=== PATIENT | male | born 1945 ===

== ENCOUNTER 2017-06-15 20:26 | Inpatient (IN) | payer MEDICARE ==
[2017-06-15 20:26] VITALS: BMI 23.6
[2017-06-15 21:42] LABS: BASO % 0.5 % (0.0-2.0); EOS # 0.1 K/uL (0.0-0.7); EOS % 1.7 % (0.0-4.0); LYMPH # 2.5 K/uL (1.0-4.3); LYMPH % 33.6 % (20.0-40.0); MEAN CELL VOLUME 91.5 fl (80.0-94.0); MEAN CORPUSCULAR HEMOGLOBIN 30.8 pg (27.0-31.0); MEAN CORPUSCULAR HGB CONC 33.6 g/dL (33.0-37.0); MEAN PLATELET VOLUME 8.1 fl (7.2-11.7); MONO # 0.7 K/uL (0.0-0.8); MONO % 8.8 % (0.0-10.0); NEUT # 4.2 K/uL (1.8-7.0); NEUT % 55.4 % (50.0-75.0); NRBC % 0.1 % (0.0-0.0); RED CELL DISTRIBUTION WIDTH 14.7 % (11.5-14.5); WHITE BLOOD COUNT 7.6 K/uL (4.8-10.8)
[2017-06-15 21:58] LABS: BLOOD UREA NITROGEN 16 mg/dl (9-20); CALCIUM 9.5 mg/dL (8.4-10.2); CARBON DIOXIDE 21 mmol/L (22-30); CHLORIDE 110 mmol/L (98-107); GFR AFRICAN-AMERICAN > 60; GLUCOSE,RANDOM 106 mg/dL (75-110); POTASSIUM 3.7 MMOL/L (3.6-5.0); SODIUM 146 mmol/l (132-148)
--- NOTE | 2017-06-15 22:25 | ED PDOC ---
HPI: Psych/Substance Abuse Time Seen by Provider: 06/15/17 20:54 Chief Complaint (Nursing): Psychiatric Evaluation Chief Complaint (Provider): Depression History Per: Patient History/Exam Limitations: no limitations Additional Complaint(s): Patient is a 71 y/o male with a past medical history of depression presenting to the emergency department for ongoing and worsening depression and suicidal thoughts. Reports that is in skilled nursing and states that he does not want to live. Also notes chronic back pain which he treats with Tylenol for relief, and chronic right shoulder pain. Denies recent injuries or trauma, any suicidal plans, or other medical and surgical history. PCP: none provided. Past Medical History Reviewed: Historical Data, Nursing Documentation, Vital Signs Vital Signs: Last Vital Signs Temp 97.7 F 06/15/17 20:29 Pulse 89 06/15/17 20:29 Resp 19 06/15/17 20:29 BP 131/66 06/15/17 20:29 Pulse Ox 98 06/15/17 20:29 - Medical History PMH: Depression, HTN, Chronic Pain (back) Denies: Diabetes, Hepatitis, HIV, Seizures, Sexually Transmitted Disease - Surgical History Surgical History: Comment Only: Back Surgery (y; 15 years ago) - Family History Family History: States: Unknown Family Hx - Social History Current smoker - smoking cessation education provided: Yes (sometimes) Ex-Smoker (has not smoked in the last 12 months): No Alcohol: None Drugs: Denies - Immunization History Hx Tetanus Toxoid Vaccination: No Hx Influenza Vaccination: No Hx Pneumococcal Vaccination: No - Home Medications Home Medications: Ambulatory Orders Medication Instructions Recorded No Known Home Med 06/16/17 - Allergies Allergies/Adverse Reactions: Allergies Allergy/AdvReac Type Severity Reaction Status Date / Time No Known Allergies Allergy Verified 06/15/17 20:34 Review of Systems ROS Statement: Except As Marked, All Systems Reviewed And Found Negative Musculoskeletal: Positive for: Shoulder Pain (right, chronic), Back Pain ( chronic) Psych: Positive for: Depression, Suicidal ideation (suicidal with no plan) Physical Exam - Reviewed Nursing Documentation Reviewed: Yes Vital Signs Reviewed: Yes - Physical Exam Appears: Positive for: Non-toxic (and disheveled), No Acute Distress Head Exam: Positive for: ATRAUMATIC, NORMAL INSPECTION, NORMOCEPHALIC Skin: Positive for: Normal Color, Warm, DRY Eye Exam: Positive for: Normal appearance, EOMI ENT: Positive for: Normal ENT Inspection Neck: Positive for: Normal, Painless ROM, Supple Cardiovascular/Chest: Positive for: Regular Rate, Rhythm. Negative for: Murmur Respiratory: Positive for: Normal Breath Sounds. Negative for: Accessory Muscle Use, Respiratory Distress Gastrointestinal/Abdominal: Positive for: Normal Exam, Soft. Negative for: Tenderness Back: Positive for: Other (lower paraspinal tenderness) Extremity: Positive for: Other (right shoulder painful ROM). Negative for: Pedal Edema, Deformity, Swelling Neurologic/Psych: Positive for: Alert, Oriented (x3) - Laboratory Results Result Diagrams: 06/15/17 21:35 06/15/17 21:35 - ECG O2 Sat by Pulse Oximetry: 98 (RA) Pulse Ox Interpretation: Normal Medical Decision Making Medical Decision Making: Time: 21:34 Initial Impression: 1. Depression 2. Chronic back pain and arthritis Initial plan: EKG Urine drug screening Crisis evaluation Motrin 400 mg PO satellite project site monitor continued Right shoulder X-Ray Reevaluation 23:59: Transfer of care to Dr. Browning for pending crisis evaluation. Scribe Attestation: Documented by Chelsea Cabrera and Flor Chau, acting as a scribe for Cindy Mauricio MD. Provider Scribe Attestation: All medical record entries made by the Scribe were at my direction and personally dictated by me. I have reviewed the chart and agree that the record accurately reflects my personal performance of the history, physical exam, medical decision making, and the department course for this patient. I have also personally directed, reviewed, and agree with the discharge instructions and disposition. ED OBSERVATION Date of observation admission: 06/15/17 Time of observation admission: 23:00 - Observation admission statement Patient is being placed in observation because:: Alcohol intoxication and depression - Goals of Observation Goals of observation are:: Clinical sobriety and crisis evaluation Disposition - Clinical Impression Clinical Impression: Depression - Patient ED Disposition Is Patient to be Admitted: Transfer of Care Counseled Patient/Family Regarding: Studies Performed, Diagnosis - Disposition Disposition: Transfer of Care Disposition Time: 23:59 Condition: FAIR
--- NOTE | 2017-06-16 00:15 | ED PDOC ---
- Laboratory Results Result Diagrams: 06/15/17 21:35 06/15/17 21:35 - ECG O2 Sat by Pulse Oximetry: 98 (RA) Medical Decision Making Medical Decision Makin:59: Transfer of care to myself for pending crisis evaluation. Records and results reviewed. Patient is medically stable for psychiatric admission. XR shoulder reviewed and is unremarkable. Labs reviewed and showed no clinically significant findings. 00:43: Crisis has evaluated the patient and recommended admission for unspecified depression and alcohol abuse. Scribe Attestation Documented by Flor Chau acting as a scribe for Gabriel Browning MD. Provider Attestation: All medical record entries made by the Scribe were at my direction and personally dictated by me. I have reviewed the chart and agree that the record accurately reflects my personal performance of the history, physical exam, medical decision making, and the department course for this patient. I have also personally directed, reviewed, and agree with the discharge instructions and disposition. Disposition - Clinical Impression Clinical Impression: Depression - POA Present On Arrival: None - Disposition Disposition: Admitted as In-Patient Disposition Time: 23:00 Condition: FAIR
[2017-06-16] MEDS ORDERED: Alum-Mag Hydrox-Simethicone Susp (30 mL) PO PRN (03:09)
[2017-06-16] MEDS ORDERED: Bismuth Subsalicylate 262 mg/15 ml Sus (240 ml) PO PRN (03:09)
[2017-06-16] MEDS ORDERED: Magnesium Hydroxide Susp 30 ml UD PO PRN (03:09)
--- NOTE | 2017-06-16 03:45 | PCM.BM ---
<Jennifer Harmon - Last Filed: 06/16/17 03:42> Treatment Plan Problems - Problems identified on initial assessmt HOPELESSNESS/HELPLESSNESS Date Initiated: 06/16/17 Time Initiated: 03:43 Assessment reference: NA Status: Active SELF CARE DEFICIT Date Initiated: 06/16/17 Time Initiated: 03:44 Assessment reference: NA Status: Active Treatment assets and liabiliti Patient Assests: cooperative, ADL independent, physically healthy, negotiates basic needs, cognitively intact Patient Liabilities: live alone, financial problems, poor support system, substance abuse - Milieu Protocol Maintain good personal hygiene: daily Encourage regular showers, daily Assist patient to perform ADL's, every shift Remind patient to perform daily oral care Conduct patient checks and document Observation sheet: Q15 minutes Maintain personal safety: every shift Educate patient to report safety concerns to staff, every shift Monitor environment for contraband/sharps Medication safety: Monitor for expected outcome, potential side effects: every shift, Assess barriers to learning: every shift, Assess readiness for medication education: every shift <Ramya Tran - Last Filed: 06/18/17 10:37> Family Contact Family involvement: Family/SO is involved Family contact comment: Pt's [facility], unknown reason Discharge/Continuing Care - Education Needs Education Needs: Patient Medication, Patient Diagnosis/Disease Process, Patient Coping Skills, Patient Anger Management skills, Patient Community resources, Patient Activities of Daily Living, Patient Personal Hygiene/Grooming, Patient Aftercare Safety Plan - Discharge Discharge Criteria: Free of Suicidal thoughts, Free of Homicidal thoughts, Free of agitation, Ability to care for self, Reduction of target symptoms Discharge to:: Home - Additional Comments 06/18/17 10:45 Pt seen and discussed in team meeting. Reason for admission discussed. Pt reported he was brought to the ED by the police for unknown reasons. Pt denied feelings of depression and anxiety. Pt denied SI and HI. Pt denied AVH. Pt denied any paranoia. Pt requesting to be discharged. Pt reported no hx of prior psychiatric services. [employer] inquired about BAL at time of ED arrival, pt stated "that is impossible, i drink 1 beer only." Pt denied problems with memory. Pt reported he lives alone and visits his at [facility] daily. Pt will be discharged back home. Pt refused after care and follow up treatment. - Treatment Team Participation Discussed with Family/SO: No Was Patient/Family/SO present at Treatment Team Meeting: Yes <Eli Morse - Last Filed: 06/18/17 11:01> - Diagnosis (1) Substance induced mood disorder Status: Acute Interventions: Individual and group therapy, medication management, psychoeducation, motivational therapy 06/18/17 11:00
[2017-06-16 08:46] LABS: IRON 75 ug/dL (49-181)
--- NOTE | 2017-06-16 08:52 | RAD ---
HISTORY: Chest pain COMPARISON: No prior. FINDINGS: LUNGS: The lungs are well inflated and clear. PLEURA: No significant pleural effusion identified, no pneumothorax apparent. CARDIOVASCULAR: Normal. OSSEOUS STRUCTURES: No significant abnormalities. VISUALIZED UPPER ABDOMEN: Normal. OTHER FINDINGS: None. IMPRESSION: No active pulmonary disease.
[2017-06-16] MEDS ORDERED: Pneumococcal 23-Valent Vaccine IM ONE (09:00)
[2017-06-16 09:07] LABS: T4 6.37 ug/dl (5.5-11.0)
--- NOTE | 2017-06-16 09:10 | RAD ---
PROCEDURE: Radiographs of the Right Shoulder HISTORY: right shoulder COMPARISON: No prior. FINDINGS: BONES: Bone alignment is normal. There is no acute fracture. There is diffuse bone demineralization. JOINTS: There is mild degenerative osteoarthrosis in the right glenohumeral joint with reduced joint space and subarticular cystic changes in the greater tuberosity. There is mild degenerative osteoarthrosis in the acromioclavicular joint. There is an ossific density superior to the acromion process which may represent an osteophyte or old fracture. SOFT TISSUES: Normal. OTHER FINDINGS: None. IMPRESSION: No acute fracture or dislocation.
[2017-06-16 09:21] LABS: THYROID STIMULATING HORMONE 0.81 mIU/ML (0.46-4.68)
--- NOTE | 2017-06-16 12:28 | CP.PCM.CON ---
History of Present Illness - History of Present Illness History of Present Illness: Reason for Consult: per hospital protocol CC: HPI: 71 year old undomiciled male with no past medical history admitted for depression to psych floor. No other complaints at this time. HD stable, NAD. ROS: per HPI, 12 systems reviewed and negative PMH: denies PSH: denies FH: denies SH: denies tobacco, ETOH, IVDU Meds: as below Allergies: NKDA Vitals: reviewed and currently stable Exam: GEN: WDWN, alert, cooperative HEENT: NCAT, PERRL, EOMI NECK: supple, no JVD, no lymphadenopathy CARDIAC: +S1S2 RRR LUNG: CTAB No WRR ABD: SOFT NT ND BSX4 NO MASSES NO HSM EXT: +pedal pulses, equal strength NEURO: AAOx3 SKIN warm, dry PSYCH normal mood, normal affect Labs: 06/15/17 21:35 06/15/17 21:35 Assessment and Plan: Depression Management per Psychiatry Team Past Patient History - Infectious Disease Hx of Infectious Diseases: None - Past Social History Alcohol: None Drugs: Denies - CARDIAC Hx Cardiac Disorders: No - PULMONARY Hx Tuberculosis: No - NEUROLOGICAL Hx Seizures: No - HEMATOLOGICAL/ONCOLOGICAL Hx Human Immunodeficiency Virus (HIV): No - MUSCULOSKELETAL/RHEUMATOLOGICAL Hx Falls: Yes - GENITOURINARY/GYNECOLOGICAL Hx Sexually Transmitted Disorders: No - PSYCHIATRIC Hx Psychophysiologic Disorder: Yes - SURGICAL HISTORY Hx Surgeries: No Other/Comment: back surgery - ANESTHESIA Hx Anesthesia: Yes Hx Anesthesia Reactions: No Hx Malignant Hyperthermia: No Has any member of the family had a problem w/ anesthesia?: No Meds Allergies/Adverse Reactions: Allergies Allergy/AdvReac Type Severity Reaction Status Date / Time No Known Allergies Allergy Verified 06/15/17 20:34 - Medications Medications: Current Medications Acetaminophen (Tylenol 325mg Tab) 650 mg PO Q4 PRN PRN Reason: Pain, moderate (4-7) Al Hydrox/Mg Hydrox/Simethicone (Maalox Plus 30 Ml) 30 ml PO Q4 PRN PRN Reason: Dyspepsia Bismuth Subsalicylate (Pepto-Bismol) 524 mg PO Q4 PRN PRN Reason: Diarrhea Lorazepam (Ativan) 0.5 mg PO HS PRN PRN Reason: Insomnia Stop: 06/30/17 03:10 Lorazepam (Ativan) 0.5 mg PO Q6 PRN PRN Reason: Anixety/Agitation Stop: 06/30/17 03:10 Magnesium Hydroxide (Milk Of Magnesia) 30 ml PO HS PRN PRN Reason: Constipation Results - Vital Signs Recent Vital Signs: Last Vital Signs Temp 97.9 F 06/16/17 06:00 Pulse 83 06/16/17 06:00 Resp 18 06/16/17 06:00 BP 115/69 06/16/17 06:00 Pulse Ox 100 06/16/17 01:47 - Labs Result Diagrams: 06/15/17 21:35 06/15/17 21:35 Labs: Laboratory Results - last 24 hr 06/16/17 06/16/17 08:03 08:03 Iron 75 TIBC 318 % Saturation 24 Ferritin 69.1 Vitamin B12 225 L Thyroxine (T4) 6.37 TSH 3rd Generation 0.81
--- NOTE | 2017-06-16 13:22 | PCM.PSYCH ---
Initial Psychiatric Evaluation - Initial Psychiatric Evaluation Chief Complaint (in patient's own words): pt was admitted to [facility] via emergency room after presentation for decreased mood , decreased appetite , feeling down thinking of who is reportedly a resident of [facility] in [place] for "trouble with memory and Parkinson's Disease". Pt. reports was feeling overwhelmed was thinking about taking live-feeling as though he has very little to live for. Pt. is homeless, defers living in particular penitentiary. Laments about reportedly having lost trailer home in [place] approx. 6 years ago when reportedly the trailer park in which he was living was closed. Pt. reports that has no support. Reports that he originally from [place], pt. reportedly has brother in [place] and is estranged. Pt. has has no children. Parents are "old age"-"unknown reasons". Denies known family history of mental illness. Pt. 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 Pt. denies previous psychiatric treatment. Denies self perception as being a person with etoh problems (Negative CAGE was obtained). Smokes one pack of cigarettes day for over 50 years. Patient's Reaction to Hospitalization: pt is verbally agreeable to admitted on a voluntary basis History of Present Illness and Precipitating Events: see above Current Medications: Active Medications Generic Name Dose Route Start Last Admin Trade Name Freq PRN Reason Stop Dose Admin Acetaminophen 650 mg 06/16/17 03:09 Tylenol 325mg Tab PO Q4 PRN Pain, moderate (4-7) Al Hydrox/Mg Hydrox/Simethicone 30 ml 06/16/17 03:09 Maalox Plus 30 Ml PO Q4 PRN Dyspepsia Bismuth Subsalicylate 524 mg 06/16/17 03:09 Pepto-Bismol PO Q4 PRN Diarrhea Escitalopram Oxalate 5 mg 06/16/17 12:45 Lexapro PO DAILY MARYCHUY Lorazepam 0.5 mg 06/16/17 03:09 Ativan PO 06/30/17 03:10 HS PRN Insomnia Lorazepam 0.5 mg 06/16/17 03:09 Ativan PO 06/30/17 03:10 Q6 PRN Anixety/Agitation Magnesium Hydroxide 30 ml 06/16/17 03:09 Milk Of Magnesia PO HS PRN Constipation Multivitamins/Minerals 1 tab 06/16/17 12:45 Therapeutic-M Tab PO DAILY MARYCHUY Past Psychiatric History - Past Psychiatric History Prior Psychiatric Treatment: denies History of ETOH/Drug Use: report 2-3 16 oz beers 2-3 times week Pertinent Medical Hx (Current Medical&Sleep Prob, Allergies): Allergies Allergy/AdvReac Type Severity Reaction Status Date / Time No Known Allergies Allergy Verified 06/15/17 20:34 No Known Home Med 06/16/17 Review of Systems - Musculoskeletal Musculoskeletal: As Par HPI - Psychiatric Psychiatric: Anhedonia, Depression Mental Status Examination - Personal Presentation Personal Presentation: Looks stated age - Affect Affect: Constricted - Motor Activity Motor Activity: Psychomotor Retardation Additional comments: denies complaints of withdrawal - Reliability in Providing Information Reliability in Providing Information: Fair - Speech Additional comments: prompting required for detail - Mood Mood: Depressed - Formal Thought Process Formal Thought Process: No Impairment - Obsessions/Compulsions Obsessions: No Compulsions: No - Cognitive Functions Orientation: Person, Place, Situation, Time Sensorium: Alert Attention/Concentration: Attentive Judgement: Imparied, as evidence by: Other, Intact, as evidence by: Other Memory: Recent intact, as evidence by: Ability to recall events of the day - Risk Risk: Suicidal Additional comments: contracts for safety, no laney plan is near nursing station - Strength & Assets Inventory Strength & Assets Inventory: Cooperative - Limitations Limitations: Living alone DSM 5 DX - DSM 5 DSM 5 Diagnosis: 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
[2017-06-16] MEDS: Multivitamin With Minerals Tab PO SCH (16:29)
[2017-06-16 17:28] LABS: FOLATE > 20.0 ng/mL
[2017-06-17 06:32] VITALS: O2SAT 98
[2017-06-17 07:18] LABS: RBC URINE 5 /hpf (0-3); RENAL EPITHELIAL < 1 /hpf (0-3); URINE BILIRUBIN NEGATIVE (NEGATIVE); URINE BLOOD NEGATIVE (NEGATIVE); URINE COLOR YELLOW (YELLOW); URINE GLUCOSE (UA) NEG (Normal); URINE KETONE TRACE mg/dL (NEGATIVE); URINE LEUKOCYTE ESTERASE NEG Leu/uL (Negative); URINE PROTEIN NEGATIVE (NEGATIVE); WBC URINE 1 /hpf (0-5)
[2017-06-17 07:26] LABS: CHOLESTEROL 159 mg/dL (0-199)
[2017-06-17] MEDS: Multivitamin With Minerals Tab PO SCH (09:00)
[2017-06-17 15:36] VITALS: RESP 19
--- NOTE | 2017-06-17 18:32 | PCM.PYCHPN ---
Psychiatric Progress Note - Psychiatric Progress Note Patient seen today, length of contact: chart reviewed case discussed with team Patient Chief Complaint: pt reports that he is feeling better, believes he is get back to [place]- speaks of who is reportedly in [facility] pt was admitted to [facility] via emergency room after presentation for decreased mood , decreased appetite , feeling down thinking of who is reportedly a resident of [facility] in [place] for "trouble with memory and Parkinson's Disease". Pt. reports was feeling overwhelmed was thinking about taking live-feeling as though he has very little to live for. Pt. is homeless, defers living in particular senior care. Laments about reportedly having lost trailer home in [place] approx. 6 years ago when reportedly the trailer park in which he was living was closed. Pt. reports that has no support. Reports that he originally from [place], pt. reportedly has brother in [place] and is estranged. Pt. has has no children. Parents are "old age"-"unknown reasons". Denies known family history of mental illness. Pt. 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 Pt. denies previous psychiatric treatment. Denies self perception as being a person with etoh problems (Negative CAGE was obtained). Smokes one pack of cigarettes day for over 50 years. Problems Identified/Issues Discussed: alteration in mood alteration in coping substance use etoh alteration in domicile -homeless Medical Problems: per chart Diagnostic Results: per psychiatry per medicine per nursing per social work DSM 5 Symptoms Update: alteration in mood alteration in coping Medical Record Reviewed: Yes Consults ordered or reviewed: pt seen by hospitalist Mental Status Examination - Cognitive Function Orientation: Person, Place, Situation, Time Attention: WNL Concentration: WNL Association: WNL Fund of Knowledge: WN Decription of patient's judgement and insights: somewhat impaired - Mood Mood: Depressed Additional comments: reportedly less depressed - Affect Affect: Constricted - Speech Speech: Soft - Formal Thought Process Formal Thought Process: No Impairment - Homicidal Ideation Homicidal Ideation: No Goal/Treatment Plan - Goal/Treatment Plan Progress Toward Problem(s) and Goals/Treatment Plan: inpt milieu vital signs and clinical observation per protocol and per status unit based prns per protocol hospitalist consult multivitamin 1 tab po day lexapro 5mg po day discharge planning in process Estimated Date of D/C: 06/19/17 - Smoking Cessation Smoking Cessation Initiated: No Reason for not providing: deferred
[2017-06-18 05:36] VITALS: BP 117/54; PULSE 62; TEMP 97.1
[2017-06-18] MEDS: Multivitamin With Minerals Tab PO SCH (08:37)
--- NOTE | 2017-06-18 10:49 | PCM.PYCHDC ---
Mental Status Examination - Mental Status Examination Orientation: Person, Place, Situation, Time Memory: Intact Mood: Neutral Affect: Broad Speech: Appropriate Attention: WNL Concentration: WNL Association: WNL Fund of Knowledge: WNL Formal Thought Process: No Impairment Description of patient's judgement and insight: Poor insight into alcohol abuse, fair judgment at this time Psychotic Thoughts and Behaviors: No AH/VH/paranoia/delusions Suicidal Ideation: No Current Homicidal Ideation?: No Discharge Summary - Discharge Note Reason for Hospitalization: As per initial admission note: pt was admitted to [facility] via emergency room after presentation for decreased mood, decreased appetite , feeling down thinking of who is reportedly a resident of [facility] in [place] for "trouble with memory and Parkinson's Disease". Pt. reports was feeling overwhelmed was thinking about taking live-feeling as though he has very little to live for. Pt. is homeless, defers living in particular penitentiary. Laments about reportedly having lost trail home in [place] approx. 6 years ago when reportedly the trail park in which he was living was closed. Pt. reports that has no support. Reports that he originally from [place], pt. reportedly has brother in [place] and is estranged. Pt. has has no children. Parents are "old age"-"unknown reasons". Denies known family history of mental illness. Pt. 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 Pt. denies previous psychiatric treatment. Denies self perception as being a person with etoh problems (Negative CAGE was obtained). Smokes one pack of cigarettes day for over 50 years. Laboratory Data: Abnormal Lab Results 06/17/17 05:30 Hemoglobin A1c 5.8 Consultations:: List each consultation separately and include: 1. Reason for request. 2. Findings. 3. Follow-up Consultations: Medicine consult Summary of Hospital Course include:: 1. Description of specific treatment plan utilized for patients during their course of treatmen. 2. Summarize the time- course for resolution of acute symptoms and/or regressed behaviors. 3. Describe issues identified and worked on during hospitalization. 4. Describe medication utilized. 5. Describe medical problems identified and treated. 6. Reassessment of suicide risk Summary of Hospital Course: Patient admitted to the psychiatry unit. Initial ETOH level in the ER >200. Patient was started on Lexapro, but now refuses to take the medications, stating that he is not depressed and does not feel he needs psychotropic medications. Individual and group therapy provided. Patient denies all psychiatric symptoms at this time. Denies AH/VH/SI/HI. He does not want follow -up psychiatric treatment. He is requesting to be discharged and is refusing all psychiatric treatment and follow-up. - Final Diagnosis (DSM 5) Condition upon Discharge: STABLE DSM 5: Substance induced mood disorder; Alcohol Use Disorder Disposition: HOME/ ROUTINE Follow-up Treatment Plan: -Discontinue Lexapro as the patient denies depression and is refusing psychiatric treatments and follow-up -Discharge as the patient denies all psychiatric symptoms at this time -Psychoeducation provided on the dangers of alcohol abuse -Patient told to return to the ER or call 911 if he has thoughts of harming himself or others - Smoking Cessation Smoking Cessation Medication prescribed: Yes Reason for not providing: Received nicotine patch, now refusing prescription for the patch - Antipsychotic Medications Pt discharged on 2 or more routine antipsychotic medications: No
--- NOTE | 2017-06-18 11:12 | CARD ---
APPROVED REPORT EKG Measurement Heart [id number] <Conclusion> Normal sinus rhythm Possible Left atrial enlargement Left anterior fascicular block Abnormal ECG
== END 2017-06-18 13:00 | disposition home or self-care (01) | DRG 897 ==
LOC: H.ER 20:26 → H.EROBSV 23:10 → H.ERHOLD 06-16 01:08 → OBSVTOIN 06-16 03:00 → H.STEP 06-16 03:04
PROVIDERS: ADMIT Nurse Practitioner Psychiatric/Mental Health; ATTEND Nurse Practitioner Psychiatric/Mental Health
PROC: GZ51ZZZ Individual Psychotherapy, Behavioral (ICD-10-PCS; principal; 2017-06-16)
DX: F19.94 Other psychoactive substance use, unspecified with psychoactive substance-induced mood disorder (principal); F10.10 Alcohol abuse, uncomplicated; R45.851 Suicidal ideations; F32.1 Major depressive disorder, single episode, moderate; I10 Essential (primary) hypertension; F17.210 Nicotine dependence, cigarettes, uncomplicated; G89.29 Other chronic pain; M19.90 Unspecified osteoarthritis, unspecified site; Z59.0 Homelessness; M25.511 Pain in right shoulder; M54.9 Dorsalgia, unspecified

== ENCOUNTER 2018-04-19 14:29 | Emergency (ER) | payer MEDICARE ==
[2018-04-19 14:29] VITALS: BMI 21.7
[2018-04-19 14:34] VITALS: BP 114/62; PULSE 106; RESP 18; TEMP 98.2; O2SAT 98
--- NOTE | 2018-04-19 15:06 | ED PDOC ---
HPI: Psych/Substance Abuse Time Seen by Provider: 04/19/18 14:37 Chief Complaint (Nursing): Psychiatric Evaluation Chief Complaint (Provider): Suicidal History Per: Patient History/Exam Limitations: no limitations Onset/Duration Of Symptoms: Days (today) Additional Complaint(s): Pt. states he wants to because he has chronic knee pain. Seen outside with a towel around his neck and a rope next to him. Was seen at another hospital earlier today for same and dc with tramadol and another med. Pt. denies any chest pain, dyspnea, back pain, fever, cough, abd pain, numbness, tingles, weakness, incontinence, constipation. Past Medical History Reviewed: Nursing Documentation, Vital Signs Vital Signs: Last Vital Signs Temp 98.2 F 04/19/18 14:31 Pulse 106 H 04/19/18 14:31 Resp 18 04/19/18 14:31 BP 114/62 04/19/18 14:31 Pulse Ox 98 04/19/18 14:31 - Medical History PMH: Back Problems, Depression, Fractures, Chronic Pain (back) Denies: Diabetes, Hepatitis, HIV, HTN, Seizures, Sexually Transmitted Disease - Surgical History Surgical History: Back Surgery (x3) - Family History Family History: States: Unknown Family Hx - Immunization History Hx Tetanus Toxoid Vaccination: No Hx Influenza Vaccination: No Hx Pneumococcal Vaccination: No - Home Medications Home Medications: Ambulatory Orders Medication Instructions Recorded RX: traMADol [Ultram] 50 mg PO TID PRN #12 tab 04/18/18 - Allergies Allergies/Adverse Reactions: Allergies Allergy/AdvReac Type Severity Reaction Status Date / Time No Known Allergies Allergy Verified 04/18/18 08:51 Review of Systems ROS Statement: Except As Marked, All Systems Reviewed And Found Negative Musculoskeletal: Positive for: Leg Pain Psych: Positive for: Suicidal ideation Physical Exam - Reviewed Nursing Documentation Reviewed: Yes Vital Signs Reviewed: Yes - Physical Exam Appears: Positive for: Non-toxic, No Acute Distress Head Exam: Positive for: ATRAUMATIC, NORMAL INSPECTION, NORMOCEPHALIC Skin: Positive for: Normal Color, Warm, DRY Eye Exam: Positive for: EOMI, Normal appearance, PERRL ENT: Positive for: Normal ENT Inspection Neck: Positive for: Normal, Painless ROM Cardiovascular/Chest: Positive for: Regular Rate, Rhythm Respiratory: Positive for: CNT, Normal Breath Sounds Gastrointestinal/Abdominal: Positive for: Normal Exam, Soft. Negative for: Tenderness Back: Positive for: Normal Inspection. Negative for: L CVA Tenderness, R CVA Tenderness Extremity: Positive for: Normal ROM. Negative for: Tenderness, Pedal Edema Neurologic/Psych: Positive for: Alert, Oriented - Laboratory Results Result Diagrams: 04/19/18 16:02 04/19/18 16:02 Interpretation Of Abn Labs: elevated alcohol - ECG O2 Sat by Pulse Oximetry: 98 Pulse Ox Interpretation: Normal - Progress ED Course And Treament: 1748: Crisis saw pt. and can be dc. Does not meet criteria for admit. He is aaox3. Resting. No pain. Tolerated PO. Disposition - Clinical Impression Clinical Impression: Alcohol intoxication - Patient ED Disposition Is Patient to be Admitted: No Counseled Patient/Family Regarding: Studies Performed, Diagnosis, Need For Followup - Disposition Referrals: [facility] [Outside] - 04/22/18 Disposition: Routine/Home Disposition Time: 17:50 Condition: STABLE Additional Instructions: Return if not better in 3 days. Instructions: Chronic Knee Pain (DC), Alcohol Abuse and Alcoholism (DC)
[2018-04-19 16:08] LABS: BASO % 0.7 % (0.0-2.0); EOS # 0.3 K/uL (0.0-0.7); EOS % 4.3 % (0.0-4.0); LYMPH # 2.2 K/uL (1.0-4.3); LYMPH % 30.2 % (20.0-40.0); MEAN CORPUSCULAR HEMOGLOBIN 31.3 pg (27.0-31.0); MEAN PLATELET VOLUME 7.7 fl (7.2-11.7); MONO # 0.7 K/uL (0.0-0.8); MONO % 8.9 % (0.0-10.0); NEUT # 4.1 K/uL (1.8-7.0); NEUT % 55.9 % (50.0-75.0); NRBC % 0.1 % (0.0-0.0); RBC 3.88 Mil/uL (4.40-5.90); RED CELL DISTRIBUTION WIDTH 14.3 % (11.5-14.5); WHITE BLOOD COUNT 7.4 K/uL (4.8-10.8)
[2018-04-19 16:38] LABS: ACETAMINOPHEN < 10.0 ug/ml (10.0-30.0); BLOOD UREA NITROGEN 21 mg/dl (9-20); CALCIUM 9.1 mg/dL (8.4-10.2); GFR AFRICAN-AMERICAN > 60; GFR NON-AFRICAN AMERICAN > 60; SALICYLATE < 1.0 mg/dl
[2018-04-19 17:11] LABS: HEMOGLOBIN 12.2 g/dL (12.0-18.0)
--- NOTE | 2018-04-20 12:57 | CARD ---
APPROVED REPORT EKG Measurement Heart [id number] <Conclusion> Normal sinus rhythm Possible Left atrial enlargement Left axis deviation Abnormal ECG
== END 2018-04-19 20:05 | disposition home or self-care (01) ==
LOC: H.ER 14:29
DX: F10.129 Alcohol abuse with intoxication, unspecified (principal); F32.9 Major depressive disorder, single episode, unspecified; G89.29 Other chronic pain
CPT/HCPCS: 80048; 85025; 93005; 99283; 99284; G0480

== ENCOUNTER 2018-04-19 22:20 | Emergency (ER) | payer MEDICARE ==
[2018-04-19 22:20] VITALS: BMI 21.7
[2018-04-19 22:25] VITALS: O2SAT 98
--- NOTE | 2018-04-20 04:18 | ED PDOC ---
Lower Extremity Pain/Injury Time Seen by Provider: 04/20/18 04:17 Chief Complaint (Nursing): Lower Extremity Problem/Injury Chief Complaint (Provider): chronic knee pain History Per: Patient Additional Complaint(s): 72 y/o male presents with chronic knee pain. He was seen for same complaint earlier today. He currently lives in alf. No recent trauma or injury, denies fever or chills. Past Medical History Reviewed: Historical Data, Nursing Documentation, Vital Signs Vital Signs: Last Vital Signs Temp 98.5 F 04/19/18 22:21 Pulse 88 04/19/18 22:21 Resp 18 04/19/18 22:21 BP 106/68 04/19/18 22:21 Pulse Ox 98 04/19/18 22:21 - Medical History PMH: Back Problems, Depression, Fractures, Chronic Pain (back) - Surgical History Surgical History: Back Surgery (x3) - Family History Family History: States: Unknown Family Hx - Living Arrangements Living Arrangements: Other (lives in alf) - Social History Alcohol: Social - Home Medications Home Medications: Ambulatory Orders Medication Instructions Recorded traMADol [Ultram] 50 mg PO TID PRN #12 tab 04/18/18 - Allergies Allergies/Adverse Reactions: Allergies Allergy/AdvReac Type Severity Reaction Status Date / Time No Known Allergies Allergy Verified 04/18/18 08:51 Wells Criteria for PE - Wells Criteria for Pulmonary Embolism Clinical Signs and Symptoms of DVT: No P.E is #1 Diagnosis, or Equally Likely: No Heart Rate >100: No Immobilization at least 3 days;Surgery previous 4 weeks: No Previous, objectively diagnosed PE or DVT: No Hemoptysis: No Malignancy w/treatment within 6 months, or palliative: No Total Score: 0 Review of Systems ROS Statement: Except As Marked, All Systems Reviewed And Found Negative Constitutional: Negative for: Fever, Chills Cardiovascular: Negative for: Chest Pain Respiratory: Negative for: Cough Gastrointestinal: Negative for: Nausea, Vomiting Musculoskeletal: Positive for: Other (chronic knee pain) Physical Exam - Reviewed Nursing Documentation Reviewed: Yes Vital Signs Reviewed: Yes - Physical Exam Appears: Positive for: Well, Non-toxic, No Acute Distress Head Exam: Positive for: ATRAUMATIC, NORMAL INSPECTION, NORMOCEPHALIC Skin: Positive for: Normal Color. Negative for: Rash Eye Exam: Positive for: Normal appearance Cardiovascular/Chest: Positive for: Regular Rate, Rhythm Respiratory: Positive for: Normal Breath Sounds. Negative for: Wheezing, Respiratory Distress Neurologic/Psych: Positive for: Alert, Oriented - ECG O2 Sat by Pulse Oximetry: 98 Pulse Ox Interpretation: Normal Medical Decision Making Medical Decision Makin72 y/o male with chronic knee pain Pain meds offered, patient declined Patient was observed in ED for several hours, his condition remained stable throughout his stay. Patient was seen for same complaint yesterday and earlier today and was given rx tramadol for knee pain. He was referred to clinic for follow up. Disposition - Clinical Impression Clinical Impression: Knee pain - Patient ED Disposition Is Patient to be Admitted: No - Disposition Referrals: [facility] [Outside] Disposition: Routine/Home Disposition Time: 04:43 Condition: STABLE Instructions: Chronic Knee Pain Forms: [facility] (Colombian)
[2018-04-20 06:52] VITALS: BP 122/78; PULSE 86; RESP 16; TEMP 98.3
== END 2018-04-20 06:00 | disposition home or self-care (01) ==
LOC: H.ER 22:20
DX: M25.562 Pain in left knee (principal); G89.29 Other chronic pain; F32.9 Major depressive disorder, single episode, unspecified

== ENCOUNTER 2018-05-10 21:06 | Emergency (ER) | payer MEDICAID, MEDICARE ==
[2018-05-10 21:06] VITALS: BMI 21.7
[2018-05-10 21:12] VITALS: RESP 16
--- NOTE | 2018-05-10 22:01 | ED PDOC ---
HPI: Psych/Substance Abuse Time Seen by Provider: 05/10/18 21:12 Chief Complaint (Nursing): Alcohol Ingestion History Per: Patient, EMS Additional Complaint(s): As per EMS pt. called 911 c/o L knee pain and verbalized to them that he wants to kill himself. Pt. states he's had the L knee pain for several years. Admits to drinking 1 budweiser today. Pt. offers no suicidal plan. Denies HI, hallucinations, trauma, chest pain, SOB, palpitations, calf pain. Past Medical History Reviewed: Historical Data, Nursing Documentation, Vital Signs Vital Signs: Last Vital Signs Temp 98.1 F 05/10/18 21:09 Pulse 89 05/10/18 21:09 Resp 16 05/10/18 21:09 BP 108/58 L 05/10/18 21:09 Pulse Ox 96 05/10/18 21:09 - Medical History PMH: Back Problems, Depression, Fractures, Chronic Pain (back) Denies: Diabetes, Hepatitis, HIV, HTN, Seizures, Sexually Transmitted Disease - Surgical History Surgical History: Back Surgery - Family History Family History: States: Unknown Family Hx - Immunization History Hx Tetanus Toxoid Vaccination: No Hx Influenza Vaccination: No Hx Pneumococcal Vaccination: No - Home Medications Home Medications: Ambulatory Orders Medication Instructions Recorded Cyclobenzaprine [Cyclobenzaprine 10 mg PO TID PRN #20 tab 05/06/18 HCl] Naproxen [Naprosyn] 500 mg PO BID #20 tab 05/06/18 - Allergies Allergies/Adverse Reactions: Allergies Allergy/AdvReac Type Severity Reaction Status Date / Time No Known Allergies Allergy Verified 05/10/18 21:08 Review of Systems ROS Statement: Except As Marked, All Systems Reviewed And Found Negative Physical Exam - Physical Exam Appears: Positive for: Well, Non-toxic, No Acute Distress Head Exam: Positive for: ATRAUMATIC, NORMAL INSPECTION, NORMOCEPHALIC Skin: Positive for: Normal Color, Warm. Negative for: Rash Eye Exam: Positive for: Normal appearance. Negative for: Periorbital swelling, Periorbital tenderness, Scleral icterus ENT: Positive for: Normal ENT Inspection, TM Is/Are (no hemotympanim b/l) Neck: Positive for: Normal, Painless ROM Cardiovascular/Chest: Positive for: Regular Rate, Rhythm, Chest Non Tender Respiratory: Positive for: Normal Breath Sounds. Negative for: Respiratory Distress Pulses-Dorsalis Pedis (L): 2+ Pulses-Dorsalis Pedis (R): 2+ Gastrointestinal/Abdominal: Positive for: Normal Exam, Bowel Sounds, Soft, Other (no ecchymosis). Negative for: Tenderness Back: Positive for: Normal Inspection. Negative for: L CVA Tenderness, R CVA Tenderness Extremity: Positive for: Other (L knee without warmth, erythema, swelling, tenderness, or deformity; FROM actively of L knee). Negative for: Pedal Edema ( b/l), Calf Tenderness (b/l) Neurologic/Psych: Positive for: Alert, Oriented, Gait (unsteady), Other (AOB; slurred speech). Negative for: Aphasia, Facial Droop - Laboratory Results Result Diagrams: 05/10/18 23:28 05/10/18 23:28 - ECG O2 Sat by Pulse Oximetry: 96 - Radiology X-Ray: Interpreted by Me (L knee x-ray) X-Ray Interpretation: Other (hardware in place; no fx) - Progress ED Course And Treament: Labs, L knee x-ray ordered. Pt. placed on 1:1. Disposition - Clinical Impression Clinical Impression: Suicidal ideation, Alcohol intoxication - Patient ED Disposition Is Patient to be Admitted: Transfer of Care (Signed out to Sabas PAUL pending sobriety and possible crisis evaluation) - Disposition Disposition Time: 00:00 Condition: STABLE Forms: [facility] (Tajik)
[2018-05-10 23:33] LABS: BASO % 0.3 % (0.0-2.0); EOS # 0.3 K/uL (0.0-0.7); EOS % 4.4 % (0.0-4.0); HEMOGLOBIN 12.3 g/dL (12.0-18.0); LYMPH # 2.4 K/uL (1.0-4.3); LYMPH % 38.6 % (20.0-40.0); MEAN CELL VOLUME 92.6 fl (80.0-94.0); MEAN CORPUSCULAR HEMOGLOBIN 32.2 pg (27.0-31.0); MEAN CORPUSCULAR HGB CONC 34.8 g/dL (33.0-37.0); MEAN PLATELET VOLUME 7.8 fl (7.2-11.7); MONO # 0.5 K/uL (0.0-0.8); MONO % 8.3 % (0.0-10.0); NEUT % 48.4 % (50.0-75.0); NRBC % 0.1 % (0.0-0.0); RBC 3.8 Mil/uL (4.40-5.90); RED CELL DISTRIBUTION WIDTH 14.9 % (11.5-14.5); WHITE BLOOD COUNT 6.1 K/uL (4.8-10.8)
[2018-05-10 23:51] LABS: ALB/GLOB RATIO 1.4 (1.0-2.1); ALT/SGPT 22 U/L (21-72); AST/SGOT 22 U/L (17-59); BLOOD UREA NITROGEN 14 mg/dl (9-20); CALCIUM 9.1 mg/dL (8.4-10.2); GFR AFRICAN-AMERICAN > 60; GFR NON-AFRICAN AMERICAN > 60
[2018-05-11 00:55] LABS: SQUAMOUS EPITHIAL < 1 /hpf (0-5); URINE BACTERIA RARE (<OCC); URINE BILIRUBIN NEGATIVE (NEGATIVE); URINE BLOOD NEGATIVE (NEGATIVE); URINE CLARITY SLIGHTY-CLOUDY (Clear); URINE COLOR YELLOW (YELLOW); URINE GLUCOSE (UA) NEG (Normal); URINE LEUKOCYTE ESTERASE NEG Leu/uL (Negative); URINE PROTEIN NEGATIVE (NEGATIVE); URINE UROBILINOGEN 0.2-1.0 mg/dL (0.2-1.0)
[2018-05-11 01:10] LABS: BARBITURATES, UR NEGATIVE (NEGATIVE); BENZODIAZEPINES, UR NEGATIVE (NEGATIVE); OPIATES, UR NEGATIVE (NEGATIVE); PHENCYCLIDINE, UR NEGATIVE (NEGATIVE)
--- NOTE | 2018-05-11 04:07 | ED PDOC ---
- Laboratory Results Result Diagrams: 05/10/18 23:28 05/10/18 23:28 - ECG O2 Sat by Pulse Oximetry: 96 Medical Decision Making Medical Decision Making: assumed care of patient at 0001; BAL is 178 at 2000; will await sobriety and request crisis screening regarding suicidal threat and ideation. Disposition Discussed With : Miguel Saucedo Doctor Will See Patient In The: Office Counseled Patient/Family Regarding: Diagnosis, Rx Given - Clinical Impression Clinical Impression: Alcohol intoxication, Alcohol dependence - POA Present On Arrival: None - Disposition Disposition: Routine/Home Disposition Time: 05:35 Condition: STABLE Instructions: Alcohol Abuse and Alcoholism (DC), Suicide Prevention Forms: [facility] (Sammarinese)
[2018-05-11 06:29] VITALS: BP 116/66; PULSE 87; TEMP 98.7; O2SAT 98
--- NOTE | 2018-05-11 15:15 | RAD ---
Date of service: 05/10/2018 PROCEDURE: Left Knee Radiographs. HISTORY: Pain. COMPARISON: None. FINDINGS: BONES: Status post ORIF proximal tibial fracture. Fixation plate along the lateral proximal tibial border with multiple fixation screws traversing the tibia. No acute fracture identified. There is productive bony change seen at the medial epicondyles likely reflecting old avulsion injury. JOINTS: Normal. No osteoarthritis. JOINT EFFUSION: None. OTHER FINDINGS: None. IMPRESSION: No acute fracture.
== END 2018-05-11 06:28 | disposition home or self-care (01) ==
LOC: H.ER 21:06
DX: R45.851 Suicidal ideations (principal); F10.129 Alcohol abuse with intoxication, unspecified; M25.562 Pain in left knee
CPT/HCPCS: 73560; 80053; 81003; 82948; 85025; 99285; G0480

== ENCOUNTER 2018-05-17 13:37 | Inpatient (IN) | payer MEDICARE ==
[2018-05-17 13:38] VITALS: BMI 19.5
[2018-05-17] MEDS ORDERED: Sodium Chloride 0.9% 1,000 ML IV STA (14:07)
--- NOTE | 2018-05-17 14:13 | ED PDOC ---
HPI: Psych/Substance Abuse Time Seen by Provider: 05/17/18 13:52 Chief Complaint (Nursing): Psychiatric Evaluation Chief Complaint (Provider): suicidal History Per: Patient History/Exam Limitations: no limitations Onset/Duration Of Symptoms: Days (today) Additional Complaint(s): Pt. was sleeping on [facility] and police found him. He is homeless and states he wants to kill himself. Did not act on it. No drugs or etoh. No pills to hurt self. Pt. denies abd pain, chest pain, dyspnea, numbness, tingles. Has left calf pain going on for 3 months. Takes tylenol as needed for it. Past Medical History Reviewed: Nursing Documentation, Vital Signs Vital Signs: Last Vital Signs Temp 97.5 F L 05/17/18 13:43 Pulse 94 H 05/17/18 13:43 Resp 20 05/17/18 13:43 BP 68/48 L 05/17/18 13:43 Pulse Ox 98 05/17/18 13:43 - Medical History PMH: Anxiety (homeless), Back Problems, Depression (homeless), Fractures, Chronic Pain (back) Denies: Diabetes, Hepatitis, HIV, HTN, Chronic Kidney Disease, Seizures, Sexually Transmitted Disease - Surgical History Surgical History: Back Surgery - Family History Family History: States: Unknown Family Hx - Immunization History Hx Tetanus Toxoid Vaccination: No Hx Influenza Vaccination: No Hx Pneumococcal Vaccination: No - Home Medications Home Medications: Ambulatory Orders Medication Instructions Recorded Naproxen [Naprosyn] 500 mg PO BID #20 tab 05/06/18 Apixaban [Eliquis] 1 tab PO BID 05/11/18 Escitalopram [Lexapro] 10 mg PO DAILY 30 Days #30 tab 05/16/18 Folic Acid 1 mg PO DAILY 30 Days #30 tab 05/16/18 Multimineral/Multivitamin 1 tab PO DAILY 30 Days #30 tab 05/16/18 [Therapeutic-M Tab] - Allergies Allergies/Adverse Reactions: Allergies Allergy/AdvReac Type Severity Reaction Status Date / Time No Known Allergies Allergy Verified 05/11/18 16:52 Review of Systems ROS Statement: Except As Marked, All Systems Reviewed And Found Negative Musculoskeletal: Positive for: Leg Pain Psych: Positive for: Suicidal ideation Physical Exam - Reviewed Nursing Documentation Reviewed: Yes Vital Signs Reviewed: Yes - Physical Exam Appears: Positive for: Non-toxic, No Acute Distress Head Exam: Positive for: ATRAUMATIC, NORMAL INSPECTION, NORMOCEPHALIC Skin: Positive for: Normal Color, Warm, DRY Eye Exam: Positive for: EOMI, Normal appearance, PERRL ENT: Positive for: Normal ENT Inspection Neck: Positive for: Normal, Painless ROM Cardiovascular/Chest: Positive for: Regular Rate, Rhythm Respiratory: Positive for: CNT, Normal Breath Sounds Gastrointestinal/Abdominal: Positive for: Normal Exam, Soft. Negative for: Tenderness Back: Positive for: Normal Inspection. Negative for: L CVA Tenderness, R CVA Tenderness Extremity: Positive for: Tenderness (Left calf mild; mild swelling; good ROM; 2 + dorsalis pedis and tibialis pulse; No sensory deficits. Moving ankle and knee full ROM. Mild venous stasis to left calf; no gross indurated erythema.). Negative for: Pedal Edema Neurologic/Psych: Positive for: Alert, Oriented - Laboratory Results Result Diagrams: 05/17/18 14:15 05/17/18 14:15 Interpretation Of Abn Labs: 12.2 wbc, bun 24 - ECG ECG: Positive for: Interpreted By Me, Viewed By Me ECG Rhythm: Positive for: Normal QRS, Normal ST Segment, Sinus Rhythm O2 Sat by Pulse Oximetry: 98 Pulse Ox Interpretation: Normal - Radiology X-Ray: Read By Radiologist X-Ray Interpretation: No Acute Disease - Progress ED Course And Treament: 165: Pt. with no acute or recent bleeding, head injury, trauma. Will give lovenox. CTA pending. 1808: Spoke with Dr. Bear. Pt. with extensive DVT, will need admit. Will give further orders when pt. reaches floor. Disposition - Clinical Impression Clinical Impression: DVT (deep venous thrombosis), Suicidal intent - Patient ED Disposition Is Patient to be Admitted: Yes Counseled Patient/Family Regarding: Studies Performed, Diagnosis - Disposition Disposition Time: 17:00 Condition: FAIR - Pt Status Changed To: Hospital Disposition Of: Inpatient - Admit Certification Admit to Inpatient:: After my assessment, the patient will require hospitalization for at least two midnights. This is because of the severity of symptoms shown, intensity of services needed, and/or the medical risk in this patient being treated as an outpatient. - POA Present On Arrival: Deep Vein Thrombosis / PE
[2018-05-17 14:39] LABS: BASO % 0.2 % (0.0-2.0); EOS # 0.1 K/uL (0.0-0.7); EOS % 0.6 % (0.0-4.0); HEMOGLOBIN 15.7 g/dL (12.0-18.0); LYMPH # 1.2 K/uL (1.0-4.3); LYMPH % 10.2 % (20.0-40.0); MEAN CELL VOLUME 94.1 fl (80.0-94.0); MEAN CORPUSCULAR HEMOGLOBIN 32.1 pg (27.0-31.0); MEAN CORPUSCULAR HGB CONC 34.1 g/dL (33.0-37.0); MEAN PLATELET VOLUME 8.3 fl (7.2-11.7); MONO # 0.7 K/uL (0.0-0.8); MONO % 5.9 % (0.0-10.0); NEUT # 10.1 K/uL (1.8-7.0); NEUT % 83.1 % (50.0-75.0); NRBC % 0.1 % (0.0-0.0); RBC 4.88 Mil/uL (4.40-5.90); RED CELL DISTRIBUTION WIDTH 15.4 % (11.5-14.5)
[2018-05-17 14:41] LABS: WHITE BLOOD COUNT 12.2 K/uL (4.8-10.8)
[2018-05-17 14:53] LABS: INR 1.1 (0.9-1.2); PROTHROMBIN TIME 11.8 Seconds (9.8-13.1)
[2018-05-17 14:54] LABS: PARTIAL THROMBOPLASTIN TIME 26.4 Seconds (25.6-37.1)
[2018-05-17 15:10] LABS: ACETAMINOPHEN < 10.0 ug/ml (10.0-30.0); SALICYLATE < 1.0 mg/dL 1
[2018-05-17 15:20] LABS: BLOOD UREA NITROGEN 24 mg/dl (9-20); CALCIUM 10.6 mg/dL (8.4-10.2); GFR NON-AFRICAN AMERICAN 50
[2018-05-17 15:21] LABS: ALB/GLOB RATIO 1.3 (1.0-2.1); ALBUMIN 5.2 g/dL (3.5-5.0); ALT/SGPT 21 U/L (21-72); AST/SGOT 24 U/L (17-59)
--- NOTE | 2018-05-17 15:28 | RAD ---
Date of service: 05/17/2018 HISTORY: crisis eval COMPARISON: 05/11/2018 FINDINGS: LUNGS: No active pulmonary disease. PLEURA: No significant pleural effusion identified, no pneumothorax apparent. CARDIOVASCULAR: No radiographic findings to suggest acute or significant cardiovascular disease. OSSEOUS STRUCTURES: No significant abnormalities. VISUALIZED UPPER ABDOMEN: Normal. OTHER FINDINGS: None. IMPRESSION: No active disease. No significant interval change compared to the prior examination(s).
--- NOTE | 2018-05-17 16:46 | US ---
Date of service: 05/17/2018 PROCEDURE: Bilateral lower extremity venous duplex Doppler. HISTORY: pain COMPARISON: None available. TECHNIQUE: Bilateral common femoral, superficial femoral, popliteal and posterior tibial veins were evaluated. Flow was assessed with color Doppler, compressibility, assessment of phasic flow and augmentation response. FINDINGS: COMMON FEMORAL VEIN: Right CFV: Unremarkable. Left CFV: Acute thrombus identified. SUPERFICIAL FEMORAL VEIN: Right SFV: Unremarkable. Left SFV: Thrombus identified. POPLITEAL VEIN: Right Popliteal: Unremarkable. Left Popliteal: Thrombus identified. POSTERIOR TIBIAL VEIN: Right PTV: Unremarkable. Left PTV: Acute thrombus identified. OTHER FINDINGS: None. IMPRESSION: Left lower extremity: Positive examination for extensive deep vein thrombosis 6 extending from the calf vessels proximally to the common femoral vein. Right lower extremity: No evidence of deep venous thrombosis.
--- NOTE | 2018-05-17 16:47 | US ---
Date of service: 05/17/2018 PROCEDURE: Duplex ultrasound of the left lower extremity arteries. HISTORY: pain left calf COMPARISON: None available. TECHNIQUE: Grayscale and duplex Doppler evaluation of the left common femoral, superficial femoral, popliteal, posterior tibial and dorsalis pedis arteries was performed.. FINDINGS: COMMON FEMORAL ARTERY: Patent. Maximal flow velocity of 53.2 cm/s. SUPERFICIAL FEMORAL ARTERY:Patent. Maximal flow velocity of 76.0 cm/s. POPLITEAL ARTERY:Patent. Maximal flow velocity of 46.2 cm/s. POSTERIOR TIBIAL ARTERY: Patent. Maximal flow velocity of 55.1 cm/s. DORSALIS PEDIS ARTERY: Flow could not be documented in the left dorsalis pedis artery. OTHER FINDINGS: None. IMPRESSION: 1. Occlusive disease limited to the left dorsalis pedis artery. 2. Normal flow velocities throughout the lower extremity from the common femoral artery to the posterior tibial artery.
[2018-05-17] MEDS ORDERED: Enoxaparin 80 mg Syringe SC STA (16:49)
[2018-05-17] MEDS ORDERED: Iodixanol 320 MG/ML 100 ML BOTTLE IV ONE (16:56)
[2018-05-17] MEDS ORDERED: Sodium Chloride 0.9% 50 ML IV ONE (16:56)
--- NOTE | 2018-05-17 17:44 | CT ---
Date of service: 05/17/2018 PROCEDURE: 04/29/2018 CT angiogram for pulmonary embolism. HISTORY: Chest pain COMPARISON: None available. TECHNIQUE: Axial computed tomography images were obtained of the chest in the pulmonary arterial phase of enhancement. Coronal and sagittal reformatted images were created and reviewed. Intravenous contrast dose: 99 cc Visipaque 320. Mean Hounsfield unit values in the main pulmonary artery: 361.54. Radiation dose: Total exam DLP = 192.57 mGy-cm. This CT exam was performed using one or more of the following dose reduction techniques: Automated exposure control, adjustment of the mA and/or kV according to patient size, and/or use of iterative reconstruction technique. FINDINGS: PULMONARY ARTERIES: Unremarkable. No pulmonary embolism. AORTA: No acute findings. No thoracic aortic aneurysm. LUNGS: Unremarkable. No nodule, mass or pulmonary consolidation. PLEURAL SPACES: Unremarkable. No effusion or pneumothorax. HEART: Unremarkable. No cardiomegaly. No significant pericardial effusion. LYMPH NODES: No lymphadenopathy. BONES, CHEST WALL: Unremarkable. No fracture or destructive lesion OTHER FINDINGS: Unremarkable. IMPRESSION: Unremarkable CT pulmonary angiogram. No pulmonary embolus.No significant interval change compared to the prior examination(s).
[2018-05-17 23:44] LABS: BARBITURATES, UR NEGATIVE (NEGATIVE); BENZODIAZEPINES, UR NEGATIVE (NEGATIVE); OPIATES, UR NEGATIVE (NEGATIVE); PHENCYCLIDINE, UR NEGATIVE (NEGATIVE)
[2018-05-18] MEDS ORDERED: Enoxaparin 80 mg Syringe SC SCH (09:00)
[2018-05-18] MEDS: Naproxen 500 MG TAB PO SCH ×2 (09:39→18:46)
[2018-05-18] MEDS: Enoxaparin 80 mg Syringe SC SCH ×2 (09:39→21:40)
[2018-05-18] MEDS: Multivitamin With Minerals Tab PO SCH (09:40)
[2018-05-18 09:45] LABS: HEMOGLOBIN 13.2 g/dL (12.0-18.0); MEAN CELL VOLUME 93.4 fl (80.0-94.0); MEAN CORPUSCULAR HEMOGLOBIN 31.4 pg (27.0-31.0); MEAN CORPUSCULAR HGB CONC 33.6 g/dL (33.0-37.0); RBC 4.19 Mil/uL (4.40-5.90); WHITE BLOOD COUNT 7.1 K/uL (4.8-10.8)
[2018-05-18 09:57] LABS: ALB/GLOB RATIO 1.4 (1.0-2.1); ALBUMIN 4.4 g/dL (3.5-5.0); ALT/SGPT 17 U/L (21-72); AST/SGOT 16 U/L (17-59); BLOOD UREA NITROGEN 25 mg/dl (9-20); CALCIUM 9.5 mg/dL (8.4-10.2); GFR NON-AFRICAN AMERICAN > 60
--- NOTE | 2018-05-18 15:03 | CARD ---
APPROVED REPORT Date of service: 05/17/2018 EKG Measurement Heart [id number] <Conclusion> Normal sinus rhythm Left axis deviation Abnormal ECG
--- NOTE | 2018-05-18 21:25 | HP ---
CHIEF COMPLAINT: Leg pain. HISTORY OF PRESENT ILLNESS: This is a 72-year-old male, who is homeless and was found on [facility] by police and the patient wanted to kill himself, so the patient was brought to emergency room and was admitted for further management. After coming to the emergency room and evaluation of left calf pain, the patient was found to have DVT and was admitted for further management. REVIEW OF SYSTEMS: Positive for left leg pain and feeling generally bad. Review of systems otherwise is negative for headache, dizziness, syncope, loss of consciousness, chest pain, shortness of breath, nausea, vomiting, diarrhea, constipation. Review of systems of all other organ systems are unremarkable. PAST MEDICAL HISTORY: Remarkable for depression, chronic back pain, multiple fractures, and anxiety. PAST SURGICAL HISTORY: Remarkable for back surgery. PERSONAL HISTORY: The patient is homeless. Currently, denies smoking, alcohol, or substance abuse. MEDICATIONS: The patient is on Naproxen, Eliquis, Lexapro, folic acid, and multivitamin. ALLERGIES: THE PATIENT IS NOT ALLERGIC TO ANY MEDICATION. FAMILY HISTORY: Noncontributory. PHYSICAL EXAMINATION: GENERAL: A well-built, well-nourished 72-year-old male, in no acute distress. VITAL SIGNS: Temperature 98.1, pulse 84, respirations 18, blood pressure 116/66, saturation 97%. HEENT: Pupils are reacting to light. No JVD. No thyromegaly. No lymphadenopathy. No nystagmus. Normocephalic and atraumatic skull. HEART: S1 and S2, normal and regular. No significant murmur, gallop, or rub are heard. LUNGS: Shows good bilateral air exchange. No rales or rhonchi. ABDOMEN: Soft and nontender. No organomegaly. No fluid. Bowel sounds are present and normal. EXTREMITIES: Left lower extremity: The patient has significant swelling of left calf compared to right, also has significant tenderness. There is no sign of distal neurovascular compromise. No acute ischemia. OFFICE SERVICES CLERK: Essentially unchanged. There is no sign of any acute gross focal, motor, or sensory neurological deficit. DIAGNOSTIC DATA: Available diagnostic data reviewed. WBC 12.3, hemoglobin 15.7, hematocrit 45.9, and platelets 224. Sodium 142, potassium 4.8, chloride 99, bicarb 25, BUN 24, and creatinine 1.4. SMA-12 is unremarkable. Toxicology is unremarkable. Lower extremity Doppler study is positive for DVT with extensive thrombosis extending from calf vessel to common femoral vein on the left side. Chest x-ray was unremarkable. CAT scan of chest was unremarkable for pulmonary embolism. EKG does not reveal any acute respiratory changes. ADMITTING IMPRESSION: Deep vein thrombosis of left lower extremity while the patient is on apixaban, depression. PLAN: As ordered. Case and plan discussed with the patient. Bin Bear MD
[2018-05-19] MEDS: Enoxaparin 80 mg Syringe SC SCH ×2 (11:01→20:13)
[2018-05-19] MEDS: Naproxen 500 MG TAB PO SCH ×2 (11:02→17:01)
[2018-05-19] MEDS: Multivitamin With Minerals Tab PO SCH (11:03)
--- NOTE | 2018-05-19 12:50 | PN ---
DATE: 05/19/2018 SUBJECTIVE: The patient seen and examined. Interim events noted. The patient remains in progressive care unit with telemetry monitoring with one-to-one observation for safety and suicidal ideation. The patient complains of leg pain but is controlled. No chest pain. No shortness of breath. PHYSICAL EXAMINATION: GENERAL: The patient is in no acute distress. VITAL SIGNS: Stable. HEART: S1 and S2. Normal and regular. LUNGS: Good bilateral air exchange. ABDOMEN: Soft and nontender. EXTREMITIES: No edema. No calf swelling. No tenderness. No acute ischemia. SILK WORKER: Essentially unchanged. DIAGNOSTIC DATA: Available diagnostic data reviewed. ASSESSMENT AND PLAN: Overall, the patient's leg pain is improving still has some tenderness on deep pressure, but it seems better than before. Telemetry monitoring does not reveal significant arrhythmias. Plan as ordered. Bin Bear MD
[2018-05-20 06:15] LABS: HEMOGLOBIN 12.4 g/dL (12.0-18.0); MEAN CELL VOLUME 93.4 fl (80.0-94.0); MEAN CORPUSCULAR HEMOGLOBIN 32.4 pg (27.0-31.0); MEAN CORPUSCULAR HGB CONC 34.7 g/dL (33.0-37.0); RBC 3.82 Mil/uL (4.40-5.90); RED CELL DISTRIBUTION WIDTH 14.6 % (11.5-14.5); WHITE BLOOD COUNT 5.8 K/uL (4.8-10.8)
[2018-05-20 06:43] LABS: ALB/GLOB RATIO 1.2 (1.0-2.1); ALBUMIN 3.8 g/dL (3.5-5.0); ALT/SGPT 19 U/L (21-72); AST/SGOT 21 U/L (17-59); BLOOD UREA NITROGEN 16 mg/dl (9-20); CALCIUM 9.3 mg/dL (8.4-10.2); GFR NON-AFRICAN AMERICAN > 60
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
[2018-05-20] MEDS: Enoxaparin 80 mg Syringe SC SCH (09:08)
[2018-05-20] MEDS: Multivitamin With Minerals Tab PO SCH (09:09)
--- NOTE | 2018-05-20 13:58 | PN ---
DATE: 05/20/2018 SUBJECTIVE: The patient seen and examined. Interim events noted. The patient remains in progressive care unit on telemetry monitoring with one-to-one observation. The patient feels okay. No specific complaint. No chest pain. No shortness of breath. PHYSICAL EXAMINATION: GENERAL: The patient is in no acute distress. VITAL SIGNS: Stable. HEART: S1 and S2. Normal and regular. LUNGS: Good bilateral air exchange. ABDOMEN: Soft and nontender. EXTREMITIES: The patient still has some 00:40 tenderness, but swelling does seem to be less 00:42. DIAGNOSTIC DATA: Available diagnostic data reviewed. ASSESSMENT AND PLAN: Overall, the patient's general medical condition is stable. We are waiting mutation and answers and coagulation test. Plan as ordered. Bin Bear MD
[2018-05-21 05:20] VITALS: RESP 20
[2018-05-21] MEDS: Multivitamin With Minerals Tab PO SCH (09:14)
[2018-05-21 12:35] VITALS: BP 106/56; PULSE 62; TEMP 98.5; O2SAT 98
--- NOTE | 2018-05-21 13:33 | PN ---
DATE: 05/21/2018 SUBJECTIVE: The patient seen and examined. Interim events noted. The patient remains in progressive care unit with telemetry monitoring. Psychiatry followup and intervention noted and appreciated. The patient was continued on one-to-one observation. The patient feels okay. Denies any chest pain or shortness of breath. Leg pain improved. PHYSICAL EXAMINATION: GENERAL: The patient is in no acute distress. VITAL SIGNS: Stable. HEART: S1, S2. Normal and regular. LUNGS: Good bilateral exchange. ABDOMEN: Soft and nontender. EXTREMITIES: No edema. No calf swelling. No acute ischemia. The patient has some residual tenderness, but it is much improved since admission. DIAGNOSTIC DATA: Available diagnostic data reviewed. ASSESSMENT AND PLAN: Overall, the patient is clinically stable and improving. Plan as ordered. Bin Bear MD
[2018-05-22 03:18] LABS: B2 GLYCOPROTEIN I AB(IGA) <9 SAU (<=20); B2 GLYCOPROTEIN I AB(IGG) <9 SGU (<=20); B2 GLYCOPROTEIN I AB(IGM) <9 SMU (<=20)
[2018-05-22 05:30] LABS: CARDIOLIPIN AB (IGA) <11 APL (<=11); CARDIOLIPIN AB (IGG) <14 GPL (<=14); CARDIOLIPIN AB (IGM) <12 MPL (<=12); PHOSPHATIDYLSERINE AB IGA <20 U/mL (<20); PHOSPHATIDYLSERINE AB IGG <10 U/mL (<10); PHOSPHATIDYLSERINE AB IGM <25 U/mL (<25)
[2018-05-22 10:58] LABS: METHYLMALONIC ACID,SERUM 196 nmol/L (87-318)
== END 2018-05-21 14:30 | disposition home or self-care (01) | DRG 300 ==
LOC: H.ER 13:37 → UNDOADMIN 18:06 → H.ERHOLD 18:06 → H.TEL 05-18 14:50
PROVIDERS: ADMIT Internal Medicine; ATTEND Internal Medicine
DX: I82.412 Acute embolism and thrombosis of left femoral vein (principal); R45.851 Suicidal ideations; I82.432 Acute embolism and thrombosis of left popliteal vein; Z59.0 Homelessness; Z79.899 Other long term (current) drug therapy; F41.9 Anxiety disorder, unspecified; F45.9 Somatoform disorder, unspecified; G89.29 Other chronic pain; M54.9 Dorsalgia, unspecified; F32.9 Major depressive disorder, single episode, unspecified

== ENCOUNTER 2018-06-16 10:41 | Emergency (ER) | payer MEDICARE ==
[2018-06-16 10:44] VITALS: BMI 19.0
[2018-06-16] MEDS ORDERED: Sodium Chloride 0.9% 1,000 ML IV STA (11:29)
[2018-06-16 11:58] LABS: BASO # 0.1 K/uL (0.0-0.2); BASO % 0.5 % (0.0-2.0); EOS # 0.1 K/uL (0.0-0.7); EOS % 0.8 % (0.0-4.0); HEMOGLOBIN 14.1 g/dL (12.0-18.0); LYMPH # 1.2 K/uL (1.0-4.3); LYMPH % 13.7 % (20.0-40.0); MEAN CELL VOLUME 93.3 fl (80.0-94.0); MEAN CORPUSCULAR HEMOGLOBIN 31.3 pg (27.0-31.0); MEAN CORPUSCULAR HGB CONC 33.6 g/dL (33.0-37.0); MEAN PLATELET VOLUME 7.5 fl (7.2-11.7); MONO # 0.8 K/uL (0.0-0.8); MONO % 8.5 % (0.0-10.0); NEUT % 76.5 % (50.0-75.0); RBC 4.5 Mil/uL (4.40-5.90); RED CELL DISTRIBUTION WIDTH 15.5 % (11.5-14.5); WHITE BLOOD COUNT 9.1 K/uL (4.8-10.8)
[2018-06-16 12:13] LABS: INR 1.1; PARTIAL THROMBOPLASTIN TIME 31.7 Seconds (25.6-37.1); PROTHROMBIN TIME 12.2 Seconds (9.8-13.1)
[2018-06-16 12:19] LABS: ALB/GLOB RATIO 1.2 (1.0-2.1); ALBUMIN 4.3 g/dL (3.5-5.0); ALT/SGPT 44 U/L (21-72); AST/SGOT 48 U/L (17-59); BLOOD UREA NITROGEN 8 mg/dl (9-20); CALCIUM 9.5 mg/dL (8.4-10.2); GFR NON-AFRICAN AMERICAN > 60
--- NOTE | 2018-06-16 13:59 | ED PDOC ---
Lower Extremity Pain/Injury Time Seen by Provider: 06/16/18 10:48 Chief Complaint (Nursing): Lower Extremity Problem/Injury Chief Complaint (Provider): Lower Extremity Problem/Injury History Per: Patient History/Exam Limitations: no limitations Additional Complaint(s): 72 years old homeless male who had multiple previous visits to the ED for left leg pain presents to the ED for evaluation of swelling and tightness to left leg. Patient reports his leg is frequently hurting him but today is worse. He denies any knowledge of past medical history or taking any specific medication for pain. Patient states he does not remember his previous visits to the ED. He reports the only medication he take is Tylenol for pain. Patient denies any fever, chest pain, shortness of breath and immobility. PMD: non provided Past Medical History Reviewed: Historical Data, Nursing Documentation, Vital Signs Vital Signs: Last Vital Signs Temp 97.8 F 06/16/18 10:43 Pulse 91 H 06/16/18 10:43 Resp 16 06/16/18 10:43 BP 125/70 06/16/18 10:43 Pulse Ox 99 06/16/18 10:43 - Medical History PMH: Anxiety, Arthritis (BACK), Back Problems, Depression, Fractures, Chronic Pain (back) Denies: Diabetes, Hepatitis, HIV, HTN, Chronic Kidney Disease, Seizures, Sexually Transmitted Disease - Surgical History Surgical History: Back Surgery Other surgeries: Left leg surgey - Family History Family History: States: Unknown Family Hx - Social History Current smoker - smoking cessation education provided: Yes Alcohol: Social Drugs: Denies - Immunization History Hx Tetanus Toxoid Vaccination: No Hx Influenza Vaccination: No Hx Pneumococcal Vaccination: No - Home Medications Home Medications: Ambulatory Orders Medication Instructions Recorded Apixaban [Eliquis] 5 mg PO BID #60 tablet 06/16/18 Ibuprofen [Motrin] 600 mg PO Q6 #100 tab 06/16/18 - Allergies Allergies/Adverse Reactions: Allergies Allergy/AdvReac Type Severity Reaction Status Date / Time No Known Allergies Allergy Verified 06/16/18 10:53 Review of Systems ROS Statement: Except As Marked, All Systems Reviewed And Found Negative Constitutional: Negative for: Fever Cardiovascular: Negative for: Chest Pain Respiratory: Negative for: Shortness of Breath Musculoskeletal: Positive for: Leg Pain (Left) Physical Exam - Reviewed Nursing Documentation Reviewed: Yes Vital Signs Reviewed: Yes - Physical Exam Appears: Positive for: Non-toxic (disheveled), No Acute Distress Head Exam: Positive for: ATRAUMATIC, NORMOCEPHALIC Cardiovascular/Chest: Positive for: Regular Rate, Rhythm. Negative for: Murmur Respiratory: Positive for: Normal Breath Sounds. Negative for: Wheezing Gastrointestinal/Abdominal: Positive for: Normal Exam, Soft. Negative for: Tenderness Extremity: Positive for: Tenderness (on palpation to left leg), Swelling ( form mid thigh to mid calf) Neurologic/Psych: Positive for: Alert, Oriented - Laboratory Results Result Diagrams: 06/16/18 11:52 06/16/18 11:52 - ECG O2 Sat by Pulse Oximetry: 99 (RA) Pulse Ox Interpretation: Normal Medical Decision Making Medical Decision Making: Time: 1248 --Ordered labs to rule out cellulitis --Coags to determine if patient take anticoagulants --Hospitalist consultation --Reeval Initial Plan: --EKG --CMP --CBC --PTT --PT --Chest X-Ray --NaCl 1,000 ml --Toradol 30 mg IVP 1450 Patient was seen by Hospitalist in ED who agrees that patient is unchanged in chronic condition. Upon provider reevaluation patient is medically stable, and requires no further treatment in the ED at this time. Patient will be discharged home with Rx for Eliquis and Motrin. Counseling was provided and all questions were answered regarding diagnosis and need for follow up with PMD. There is agreement to discharge plan. Discussed need to take medications with patient. Return parameters such as shortness of breath, chest pain, numbness, coldness of the skin, and skin color changes were discussed with the patient as well. He confirms understanding of return precautions and need to take medications. Scribe Attestation: Documented by Nidhi Bower, acting as a scribe for Destiny Mandel MD. Provider Scribe Attestation: All medical record entries made by the Scribe were at my direction and personally dictated by me. I have reviewed the chart and agree that the record accurately reflects my personal performance of the history, physical exam, medical decision making, and the department course for this patient. I have also personally directed, reviewed, and agree with the discharge instructions and disposition. Disposition - Clinical Impression Clinical Impression: DVT (deep venous thrombosis) - Disposition Referrals: Alcoholics Anonymous [Outside] [facility] [Outside] FAMILY PROVIDER,NO [Primary Care Provider] - Condition: IMPROVED Additional Instructions: Take medications as prescribed. Follow up in the clinic in one week or less. Return to the emergency department if you develop worsened symptoms (chest pain , difficulty breathing, dizziness, or weakness) Prescriptions: Apixaban [Eliquis] 5 mg PO BID #60 tablet Ibuprofen [Motrin] 600 mg PO Q6 #100 tab Forms: [employer] (Latvian) Print Language: BAHRAINI
--- NOTE | 2018-06-16 14:09 | RAD ---
Date of service: 06/16/2018 HISTORY: Known DVT COMPARISON: Comparison chest dated in 04/202005/10/2018 FINDINGS: LUNGS: No active pulmonary disease. PLEURA: No significant pleural effusion identified, no pneumothorax apparent. Mild biapical pleural thickening CARDIOVASCULAR: Normal. OSSEOUS STRUCTURES: No significant abnormalities. VISUALIZED UPPER ABDOMEN: Normal. OTHER FINDINGS: None. IMPRESSION: No active disease.
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
[2018-06-16 15:49] VITALS: BP 104/69; PULSE 77; RESP 17; TEMP 98.5; O2SAT 98
--- NOTE | 2018-06-16 22:57 | CARD ---
APPROVED REPORT Date of service: 06/16/2018 EKG Measurement Heart [id number] <Conclusion> Normal sinus rhythm Left axis deviation Abnormal ECG
== END 2018-06-16 15:20 | disposition home or self-care (01) ==
LOC: H.ER 10:41
DX: I82.402 Acute embolism and thrombosis of unspecified deep veins of left lower extremity (principal); F10.20 Alcohol dependence, uncomplicated; Z91.19 Patient's noncompliance with other medical treatment and regimen; Z86.718 Personal history of other venous thrombosis and embolism; Z79.01 Long term (current) use of anticoagulants; F17.200 Nicotine dependence, unspecified, uncomplicated
CPT/HCPCS: 71045; 80053; 85025; 85610; 85730; 93005; 96361; 96374; 99283; G0480; J1885; J7030

== ENCOUNTER 2018-06-17 20:51 | Emergency (ER) | payer MEDICARE ==
[2018-06-17 20:51] VITALS: BMI 19.0
[2018-06-17 20:59] VITALS: BP 129/70; RESP 16; TEMP 99.1; O2SAT 99
--- NOTE | 2018-06-17 21:36 | ED PDOC ---
Lower Extremity Pain/Injury Time Seen by Provider: 06/17/18 21:01 Chief Complaint (Nursing): Lower Extremity Problem/Injury Chief Complaint (Provider): Lower Extremity Problem/Injury History Per: Patient History/Exam Limitations: no limitations Onset/Duration Of Symptoms: Days (x1) Current Symptoms Are (Timing): Still Present Additional Complaint(s): 72 year old male with a history of alcoholism, homelessness and left lower extremity dvt diagnoses at the end of April presents to the ED for left leg pain and swelling. Patient reports he was seen here for the same symptoms yesterday, is noncompliant with medications and was advised to take medications but has not. He states his left leg has gotten progressively more swollen and painful. Patient denies any new trauma, fever, shortness of breath, chest pain or any other medical complaints. PMD: none provided Past Medical History Reviewed: Historical Data, Nursing Documentation, Vital Signs Vital Signs: Last Vital Signs Temp 99.1 F 06/17/18 20:55 Pulse 98 H 06/17/18 20:55 Resp 16 06/17/18 20:55 BP 129/70 06/17/18 20:55 Pulse Ox 99 06/17/18 20:55 - Medical History PMH: Anxiety, Arthritis (BACK), Back Problems, Depression, Deep Vein Thrombosis , Fractures, Chronic Pain (back) Denies: Diabetes, Hepatitis, HIV, HTN, Chronic Kidney Disease, Seizures, Sexually Transmitted Disease - Surgical History Surgical History: Back Surgery Other surgeries: orthopedic surgery to left leg - Family History Family History: States: Unknown Family Hx - Social History Current smoker - smoking cessation education provided: No Ex-Smoker (has not smoked in the last 12 months): No Alcohol: > 2 Drinks/Day Drugs: Denies - Immunization History Hx Tetanus Toxoid Vaccination: No Hx Influenza Vaccination: No Hx Pneumococcal Vaccination: No - Home Medications Home Medications: Ambulatory Orders Medication Instructions Recorded Apixaban [Eliquis] 5 mg PO BID #60 tablet 06/16/18 Ibuprofen [Motrin] 600 mg PO Q6 #100 tab 06/16/18 - Allergies Allergies/Adverse Reactions: Allergies Allergy/AdvReac Type Severity Reaction Status Date / Time No Known Allergies Allergy Verified 06/16/18 10:53 Review of Systems ROS Statement: Except As Marked, All Systems Reviewed And Found Negative Constitutional: Negative for: Fever Cardiovascular: Negative for: Chest Pain Respiratory: Negative for: Shortness of Breath Musculoskeletal: Positive for: Leg Pain (left leg pain and swelling) Physical Exam - Reviewed Nursing Documentation Reviewed: Yes Vital Signs Reviewed: Yes - Physical Exam Appears: Positive for: In Acute Distress (mild, disheveled, unkempt, slightly cachectic ) Eye Exam: Positive for: Conjunctival injection Cardiovascular/Chest: Positive for: Regular Rate, Rhythm. Negative for: Murmur Respiratory: Positive for: Normal Breath Sounds. Negative for: Respiratory Distress Extremity: Positive for: Tenderness (diffuse tenderness to the left lower extremity), Pedal Edema (firm, pitting below the knee down to foot), Capillary Refill (less than 2 seconds), Other (foot is warm, light touch is intact, limited ankle and flexion and dorsiflexion secondary to pain, pedal pulse palpable, no modeling or coolness) - ECG O2 Sat by Pulse Oximetry: 99 (RA) Pulse Ox Interpretation: Normal Medical Decision Making Medical Decision Making: Time: 2119 Initial Impression: LLE dvt and pain Initial Impression: --Toradol 30 mg IM --Patient has no shortness of breath or chest pain, no concern for PE. Patient has good circulation to leg. --Strongly advised patient to take medications as prescribed. Stable for discharge. Scribe Attestation: Documented by Sharon Cooper, acting as a scribe for Renata Iglesias MD Provider Scribe Attestation: All medical record entries made by the Scribe were at my direction and personally dictated by me. I have reviewed the chart and agree that the record accurately reflects my personal performance of the history, physical exam, medical decision making, and the department course for this patient. I have also personally directed, reviewed, and agree with the discharge instructions and disposition. Disposition - Clinical Impression Clinical Impression: DVT (deep venous thrombosis) - Disposition Referrals: [facility] [Outside] Disposition: Routine/Home Disposition Time: 21:00 Condition: STABLE Additional Instructions: GO TO PHARMACY GIVE YOUR PRESCRIPTION TAKE YOUR MEDICINE PRESCRIBED VAYA A LA FARMACIA FRED A LA FAMACIA TU RECETA ABEL NUNEZ MEDICINA A RECETO Instructions: Deep Vein Thrombosis (Blood Clots in the Legs) (DC) Forms: [employer] (South African) Print Language: MONTENEGRIN
[2018-06-17 22:40] VITALS: PULSE 78
== END 2018-06-17 21:43 | disposition home or self-care (01) ==
LOC: H.ER 20:51
DX: I82.409 Acute embolism and thrombosis of unspecified deep veins of unspecified lower extremity (principal); Z86.59 Personal history of other mental and behavioral disorders; G89.29 Other chronic pain; Z79.01 Long term (current) use of anticoagulants; Z86.718 Personal history of other venous thrombosis and embolism; Z87.891 Personal history of nicotine dependence
CPT/HCPCS: 96372; 99282; J1885

== ENCOUNTER 2018-06-18 09:18 | Emergency (ER) | payer MEDICARE ==
[2018-06-18 09:18] VITALS: BMI 19.0
[2018-06-18 13:05] VITALS: RESP 20; TEMP 98.7
--- NOTE | 2018-06-18 15:02 | ED PDOC ---
Lower Extremity Pain/Injury Time Seen by Provider: 06/18/18 09:25 Chief Complaint (Nursing): Lower Extremity Problem/Injury Chief Complaint (Provider): leg pain History Per: Patient History/Exam Limitations: no limitations Onset/Duration Of Symptoms: Gradual Additional Complaint(s): 72yo male represents to the ED w chronic leg pain, has had recurrent ED visits and several admissions for DVT. Hospitalist saw patient within last 2 days without change in appearance of leg. Patient admits to noncompliance w his medication including eliquis. Denies SOB or chest pain. Patient is homeless. Past Medical History Reviewed: Historical Data, Nursing Documentation, Vital Signs Vital Signs: Last Vital Signs Temp 98.7 F 06/18/18 13:05 Pulse 86 06/18/18 13:05 Resp 20 06/18/18 13:05 BP 101/62 06/18/18 13:05 Pulse Ox 100 06/18/18 13:05 - Medical History PMH: Anxiety, Arthritis (BACK), Back Problems, Depression, Deep Vein Thrombosis , Fractures, Chronic Pain (back) Denies: Diabetes, Hepatitis, HIV, HTN, Chronic Kidney Disease, Seizures, Sexually Transmitted Disease - Surgical History Surgical History: Back Surgery - Family History Family History: States: Unknown Family Hx - Living Arrangements Living Arrangements: Other - Social History Alcohol: > 2 Drinks/Day - Immunization History Hx Tetanus Toxoid Vaccination: No Hx Influenza Vaccination: No Hx Pneumococcal Vaccination: No - Home Medications Home Medications: Ambulatory Orders Medication Instructions Recorded Apixaban [Eliquis] 5 mg PO BID #60 tablet 06/16/18 Ibuprofen [Motrin] 600 mg PO Q6 #100 tab 06/16/18 Apixaban [Eliquis] 5 mg PO BID #60 tab 06/18/18 - Allergies Allergies/Adverse Reactions: Allergies Allergy/AdvReac Type Severity Reaction Status Date / Time No Known Allergies Allergy Verified 06/18/18 09:43 Review of Systems Constitutional: Negative for: Fever Cardiovascular: Negative for: Chest Pain, Palpitations Gastrointestinal: Negative for: Abdominal Pain Genitourinary Male: Negative for: Frequency Musculoskeletal: Positive for: Back Pain, Leg Pain, Foot Pain. Negative for: Arm Pain Skin: Negative for: Lesions Neurological: Negative for: Weakness, Numbness Psych: Negative for: Suicidal ideation Physical Exam - Reviewed Nursing Documentation Reviewed: Yes Vital Signs Reviewed: Yes - Physical Exam Appears: Positive for: Well, Non-toxic, No Acute Distress Head Exam: Positive for: ATRAUMATIC, NORMAL INSPECTION, NORMOCEPHALIC Skin: Positive for: Normal Color, Warm, DRY Eye Exam: Positive for: EOMI, Normal appearance, PERRL Cardiovascular/Chest: Positive for: Regular Rate, Rhythm. Negative for: Tachycardia Respiratory: Positive for: CNT, Normal Breath Sounds Gastrointestinal/Abdominal: Positive for: Normal Exam, Soft Back: Positive for: Normal Inspection Extremity: Positive for: Pedal Edema, Swelling (L>R), Other (chronic appearing changes b/l LE) Neurologic/Psych: Positive for: Alert, Oriented. Negative for: Motor/Sensory Deficits - ECG O2 Sat by Pulse Oximetry: 100 Medical Decision Making Medical Decision Making: EKG obtained and prior charts reviewed, patient had bloodwork within last 2 days. No change in clinical condition appreciated. Patient allowed to sleep in ED for 5hrs given inclement weather/ heat. DC from ED. Disposition - Clinical Impression Clinical Impression: DVT (deep venous thrombosis) - Patient ED Disposition Is Patient to be Admitted: No Counseled Patient/Family Regarding: Studies Performed, Diagnosis, Need For Followup - Disposition Referrals: [facility] [Outside] Disposition: Routine/Home Disposition Time: 15:05 Condition: STABLE Additional Instructions: Followup with clinic for followup Prescriptions: Apixaban [Eliquis] 5 mg PO BID #60 tab Instructions: Deep Vein Thrombosis (Blood Clots in the Legs) Forms: [facility] (Kosovan)
[2018-06-18 15:38] VITALS: BP 104/68; PULSE 80; O2SAT 99
--- NOTE | 2018-06-18 22:42 | CARD ---
APPROVED REPORT Date of service: 06/18/2018 EKG Measurement Heart [id number] <Conclusion> Normal sinus rhythm Left axis deviation Abnormal ECG
== END 2018-06-18 15:20 | disposition home or self-care (01) ==
LOC: H.ER 09:18
DX: I82.402 Acute embolism and thrombosis of unspecified deep veins of left lower extremity (principal); G89.29 Other chronic pain; Z79.01 Long term (current) use of anticoagulants; Z86.718 Personal history of other venous thrombosis and embolism

== ENCOUNTER 2018-06-18 16:26 | Inpatient (IN) | payer MEDICARE, MEDICAID ==
[2018-06-18 16:27] VITALS: BMI 19.0
[2018-06-18 17:20] LABS: BASO % 0.3 % (0.0-2.0); EOS # 0.3 K/uL (0.0-0.7); HEMOGLOBIN 12.5 g/dL (12.0-18.0); LYMPH # 1.2 K/uL (1.0-4.3); LYMPH % 16.3 % (20.0-40.0); MEAN CORPUSCULAR HEMOGLOBIN 31.3 pg (27.0-31.0); MEAN CORPUSCULAR HGB CONC 33.4 g/dL (33.0-37.0); MEAN PLATELET VOLUME 7.6 fl (7.2-11.7); MONO # 0.7 K/uL (0.0-0.8); MONO % 9.5 % (0.0-10.0); NEUT # 5.2 K/uL (1.8-7.0); NEUT % 69.9 % (50.0-75.0); RED CELL DISTRIBUTION WIDTH 15.7 % (11.5-14.5); WHITE BLOOD COUNT 7.5 K/uL (4.8-10.8)
[2018-06-18 17:26] LABS: INR 1.2; PROTHROMBIN TIME 13.4 Seconds (9.8-13.1)
[2018-06-18 17:28] LABS: PARTIAL THROMBOPLASTIN TIME 34.7 Seconds (25.6-37.1)
--- NOTE | 2018-06-18 17:40 | RAD ---
Date of service: 06/18/2018 PROCEDURE: Left Ankle Radiographs. HISTORY: pain COMPARISON: None FINDINGS: BONES: No acute fracture. JOINTS: Ankle mortise maintained. Talar dome intact SOFT TISSUES: Bimalleolar soft tissue swelling. Ankle joint effusion. OTHER FINDINGS: Trace Achilles enthesophyte. Inferior plantar calcaneal spur. IMPRESSION: Bimalleolar soft tissue swelling and small ankle joint effusion without demonstrated fracture or dislocation.
--- NOTE | 2018-06-18 17:41 | RAD ---
Date of service: 06/18/2018 PROCEDURE: Left Foot Radiographs. HISTORY: pain COMPARISON: None. FINDINGS: BONES: No acute fracture. JOINTS: Normal. SOFT TISSUES: Bimalleolar soft tissue swelling. OTHER FINDINGS: Trace Achilles enthesophyte. Small inferior plantar calcaneal spur. IMPRESSION: Bimalleolar soft tissue swelling without demonstrated fracture or dislocation.
[2018-06-18 17:59] LABS: ALB/GLOB RATIO 1.2 (1.0-2.1); ALBUMIN 3.9 g/dL (3.5-5.0); ALT/SGPT 32 U/L (21-72); AST/SGOT 28 U/L (17-59); BLOOD UREA NITROGEN 17 mg/dl (9-20); CALCIUM 8.9 mg/dL (8.4-10.2); GFR NON-AFRICAN AMERICAN > 60
--- NOTE | 2018-06-18 18:06 | ED PDOC ---
HPI: General Adult Time Seen by Provider: 06/18/18 16:41 Chief Complaint (Nursing): Back Pain Chief Complaint (Provider): Chronic back pain History Per: Patient History/Exam Limitations: no limitations Recently: Seen In ED Additional Complaint(s): 72yo male, brought to ER by EMS for chronic leg pain; patient has had multiple ER visits including one this morning and several prior admissions for DVT. Patient was seen by the hospitalist within last 2 days with no changes in appearaance of his leg. He admits to being noncomplaint with medications including eliquis. Patient denies any chest pain or shortness of breath. Of note , patient is homeless. No new complaints since evaluations this AM. Past Medical History Reviewed: Historical Data, Nursing Documentation, Vital Signs Vital Signs: Last Vital Signs Temp 97.1 F L 06/21/18 06:00 Pulse 81 06/21/18 06:00 Resp 19 06/21/18 06:00 BP 117/63 06/21/18 06:00 Pulse Ox 97 06/19/18 14:16 - Medical History PMH: Anxiety, Arthritis (BACK), Back Problems, Depression, Deep Vein Thrombosis , Fractures, Chronic Pain (back) Denies: Diabetes, Hepatitis, HIV, HTN, Chronic Kidney Disease, Seizures, Sexually Transmitted Disease - Surgical History Surgical History: Back Surgery - Family History Family History: States: Unknown Family Hx - Immunization History Hx Tetanus Toxoid Vaccination: No Hx Influenza Vaccination: No Hx Pneumococcal Vaccination: No - Home Medications Home Medications: Ambulatory Orders Medication Instructions Recorded Apixaban [Eliquis] 5 mg PO BID #60 tablet 06/16/18 Ibuprofen [Motrin] 600 mg PO Q6 #100 tab 06/16/18 - Allergies Allergies/Adverse Reactions: Allergies Allergy/AdvReac Type Severity Reaction Status Date / Time No Known Allergies Allergy Verified 06/18/18 09:43 Review of Systems Constitutional: Negative for: Fever, Chills Cardiovascular: Negative for: Chest Pain Respiratory: Negative for: Shortness of Breath Gastrointestinal: Negative for: Vomiting, Abdominal Pain Musculoskeletal: Positive for: Back Pain, Leg Pain, Foot Pain Neurological: Negative for: Weakness, Numbness Psych: Negative for: Suicidal ideation Physical Exam - Reviewed Nursing Documentation Reviewed: Yes Vital Signs Reviewed: Yes - Physical Exam Appears: Positive for: Well, Non-toxic, No Acute Distress Head Exam: Positive for: ATRAUMATIC, NORMAL INSPECTION, NORMOCEPHALIC Skin: Positive for: Normal Color, Warm, Dry Eye Exam: Positive for: EOMI, Normal appearance, PERRL Cardiovascular/Chest: Positive for: Regular Rate, Rhythm Respiratory: Positive for: Normal Breath Sounds Gastrointestinal/Abdominal: Positive for: Normal Exam, Soft Back: Positive for: Normal Inspection Extremity: Positive for: Normal ROM, Pedal Edema, Swelling (L>R), Other ( chronic changes bilateral LE) Neurologic/Psych: Positive for: Alert, Oriented, Mood/Affect (flat, tearful). Negative for: Motor/Sensory Deficits - Laboratory Results Result Diagrams: 06/20/18 06:38 06/20/18 06:38 - ECG O2 Sat by Pulse Oximetry: 98 (RA) Pulse Ox Interpretation: Normal Medical Decision Making Medical Decision Making: Plan: -- EKG -- Urinalysis -- XR lumbar spine -- XR left foot -- XR left ankle -- Labs 1819 XR Lumbar spine reviewed and shows lumbar hardware. XRays LLE reveal soft tissue edema no fracture. Chronic issue, known DVT on oral AC. Prior charts reviewed revealing recent pulm and LLE vascular workups. Patient is homeless but has extreme difficulty w ambulation and became tearful when attempting to ambulate. Discussed w social work recommended PT eval in morning, will hold for PT eval for safe dispo/ Scribe Attestation: Documented by Kaley Dee, acting as a scribe for Sterling Archer DO. Provider Scribe Attestation: All medical record entries made by the Scribe were at my direction and personally dictated by me. I have reviewed the chart and agree that the record accurately reflects my personal performance of the history, physical exam, medical decision making, and the department course for this patient. I have also personally directed, reviewed, and agree with the discharge instructions and disposition. Disposition - Clinical Impression Clinical Impression: Back pain, Suicidal ideation - Patient ED Disposition Is Patient to be Admitted: Transfer of Care - Disposition Disposition: Transfer of Care Disposition Time: 19:00 Condition: FAIR
[2018-06-18 18:45] LABS: SQUAMOUS EPITHIAL < 1 /hpf (0-5); URINE BACTERIA OCC (<OCC); URINE BILIRUBIN NEGATIVE (NEGATIVE); URINE BLOOD SMALL (NEGATIVE); URINE CLARITY SLIGHTY-CLOUDY (Clear); URINE COLOR AMBER (YELLOW); URINE GLUCOSE (UA) NEG (Normal); URINE LEUKOCYTE ESTERASE NEG Leu/uL (Negative); URINE PROTEIN 30 mg/dL (NEGATIVE)
--- NOTE | 2018-06-18 19:37 | ED PDOC ---
- Laboratory Results Result Diagrams: 06/18/18 17:13 06/18/18 17:13 - ECG O2 Sat by Pulse Oximetry: 98 (RA) Pulse Ox Interpretation: Normal Medical Decision Making Medical Decision Makin Patient signed out to me by Dr. Archer pending reassessment. Scribe Attestation: Documented by Kaley Dee, acting as a scribe for Gabriel Browning MD. Provider Scribe Attestation: All medical record entries made by the Scribe were at my direction and personally dictated by me. I have reviewed the chart and agree that the record accurately reflects my personal performance of the history, physical exam, medical decision making, and the department course for this patient. I have also personally directed, reviewed, and agree with the discharge instructions and disposition. Time: 0700 -- Patient endorsed to Dr. Mitchell, pending physiotherapy consultation and re- evaluation. Scribe Attestation: Documented by Shayna Fong acting as a scribe for Gabriel Browning MD. Provider Scribe Attestation: All medical record entries made by the Scribe were at my direction and personally dictated by me. I have reviewed the chart and agree that the record accurately reflects my personal performance of the history, physical exam, medical decision making, and the department course for this patient. I have also personally directed, reviewed, and agree with the discharge instructions and disposition. Disposition - Clinical Impression Clinical Impression: Back pain - POA Present On Arrival: None - Disposition Disposition: Transfer of Care Disposition Time: 07:00 Condition: GOOD Forms: [facility] (Faroese) Patient Signed Over To: Carolyn Mitchell
--- NOTE | 2018-06-19 10:16 | CARD ---
APPROVED REPORT Date of service: 06/18/2018 <Conclusion> Normal sinus rhythm Left posterior fascicular block Abnormal QRS-T angle, consider primary T wave abnormality Abnormal ECG
--- NOTE | 2018-06-19 11:37 | US ---
Date of service: 06/19/2018 HISTORY: left calf swelling . PRIORS: 05/17/2018 FINDINGS: 2-D, color and duplex Doppler analysis of the lower extremity venous circulation using routine protocol from the femoral veins through the popliteal veins and posterior tibiali veins. . Venous compressibility: Not evident Flow and augmentation patterns: Flow not detected. Venous compressibility not attempted due to previously documented existence of deep venous thrombosis. . Visualized veins upper third of calf: No flow detected. Christopher cyst: None. IMPRESSION: Deep venous thrombosis detected throughout the left lower extremity as on prior examination.
--- NOTE | 2018-06-19 12:48 | ED PDOC ---
- Laboratory Results Result Diagrams: 06/18/18 17:13 06/18/18 17:13 - ECG O2 Sat by Pulse Oximetry: 97 Medical Decision Making Medical Decision Making: patient with know DVT. Already on Eliquis. patient is stable to have PT evaluation and treatment patient voiced depression with suicidal thoughts during PT evaluation. He was seen by crisis and admitted to Dr. Morse's service. Disposition Doctor Will See Patient In The: Hospital - Clinical Impression Clinical Impression: Back pain, Suicidal ideation - POA Present On Arrival: None - Disposition Disposition: Transfer of Care Disposition Time: 14:00 Condition: FAIR Instructions: Depression Forms: [facility] (Danish)
[2018-06-19] MEDS ORDERED: Alum-Mag Hydrox-Simethicone Susp (30 mL) PO PRN (17:21)
[2018-06-19] MEDS ORDERED: Magnesium Hydroxide Susp 30 ml UD PO PRN (17:21)
[2018-06-19] MEDS ORDERED: Bismuth Subsalicylate 262 mg/15 ml Sus (240 ml) PO PRN (17:21)
--- NOTE | 2018-06-19 18:15 | PCM.BM ---
<Hanna Prather - Last Filed: 06/19/18 18:13> Treatment Plan Problems - Problems identified on initial assessmt hopeless/helplessness Date Initiated: 06/19/18 Time Initiated: 18:14 Assessment reference: NA Status: Active Priority: 1 medication adherence Date Initiated: 06/19/18 Time Initiated: 18:15 Assessment reference: NA Status: Active Priority: 2 Treatment assets and liabiliti Patient Assests: cooperative, ADL independent, physically healthy, negotiates basic needs, cognitively intact Patient Liabilities: poor support system, medical problems, other (homeless) - Milieu Protocol Maintain good personal hygiene: every shift Encourage regular showers, every shift Remind patient to perform daily oral care, every shift Assist patient to perform ADL's Maintain personal safety: every shift Educate patient to report safety concerns to staff, every shift Monitor environment for contraband/sharps Medication safety: Monitor for expected outcome, potential side effects: every shift, Assess barriers to learning: every shift, Assess readiness for medication education: every shift <Eli Morse - Last Filed: 06/20/18 13:10> - Diagnosis (1) Depressive disorder Status: Acute Interventions: Medication management, Individual and group therapy, Psychoeducation 06/20/18 13:11 <Ramya Tran - Last Filed: 06/21/18 15:04> Family Contact Family involvement: Famliy/SO not involved - Outside Agency [facility] Care involvment: Not involved - Goals for Treatment Patient goals for treatment: "My pain to go away." Discharge/Continuing Care - Education Needs Education Needs: Family Medication, Family Diagnosis/Disease Process, Family Coping Skills, Family Placement options, Family Community resources, Family Health Practices/Safety, Family Personal Hygiene/Grooming, Family Aftercare Safety Plan - Discharge Discharge Criteria: Tolerates medication w/o severe side effects, Free of Suicidal thoughts, Ability to care for self, Reduction of target symptoms Discharge to:: Residential - Additional Comments 06/21/18 14:58 Pt seen and discussed in team meeting. Reason for hospitalization reviewed and discussed. Pt reported he was admitted due to "too much pain." Pt denied symptoms of depression and anxiety. Pt denied having memory issues stating "perfect." Talent Development Coordinator reviewed and discussed neuropscyh evaluation and results. Pt verbalize that he disagrees with the final results of the testing. Talent Development Coordinator inquired about suicidal statement that pt mentioned prior to hospitalization stating "I rather ." Pt reported that he rather than to live with the pain. Pt is homeless and unable to care for himself in the community. Pt's social and emotional issues reviewed and discussed. Tx plan reviewed and discussed. Talent Development Coordinator reviewed NH placement if he meets criteria and pt verbalized agreement. SW to continue to follow case. - Treatment Team Participation Discussed with Family/SO: No Was Patient/Family/SO present at Treatment Team Meeting: Yes
[2018-06-20 06:55] LABS: HEMOGLOBIN 12.5 g/dL (12.0-18.0); MEAN CELL VOLUME 94.2 fl (80.0-94.0); MEAN CORPUSCULAR HEMOGLOBIN 31.7 pg (27.0-31.0); MEAN CORPUSCULAR HGB CONC 33.7 g/dL (33.0-37.0); RBC 3.96 Mil/uL (4.40-5.90); RED CELL DISTRIBUTION WIDTH 15.2 % (11.5-14.5)
[2018-06-20 07:24] LABS: ALB/GLOB RATIO 1.2 (1.0-2.1); ALBUMIN 3.8 g/dL (3.5-5.0); ALT/SGPT 33 U/L (21-72); AST/SGOT 29 U/L (17-59); BLOOD UREA NITROGEN 11 mg/dl (9-20); CALCIUM 9.2 mg/dL (8.4-10.2); GFR NON-AFRICAN AMERICAN > 60; HDL CHOLESTEROL 35 MG/DL (30-70)
[2018-06-20 07:29] LABS: LDL CHOLESTEROL 49 mg/dL (0-129)
--- NOTE | 2018-06-20 11:19 | PCM.PSYCH ---
Initial Psychiatric Evaluation - Initial Psychiatric Evaluation Type of Admission: Voluntary Legal Status: Capacity Chief Complaint (in patient's own words): Depression Patient's Reaction to Hospitalization: HPI: 72 yo homeless male, presents w/ depression and thoughts of dying and passive SI due to having chronic physical pain. He reports that his recently. He reports feeling hopeless at times, but denies active suicidal ideation/plan/intent. He was treated w/ Lexapro recently, but has been non- compliant with treatment. NO AH/VH. PPHx: H/o psychiatric hospitalization on 3NS for depression and suicidal ideation. H/o treatment w/ Lexapro, but patient it not compliant with treatment or medications. He has a history of alcohol abuse, but states that he has not drank alcohol for several weeks. PMHx: DVT ALL: NKDA SHx: Homeless; h/o alcohol abuse Current Medications: Active Medications Generic Name Dose Route Start Last Admin Trade Name Freq PRN Reason Stop Dose Admin Acetaminophen 650 mg 06/19/18 17:21 Tylenol 325mg Tab PO Q4 PRN Pain, moderate (4-7) Al Hydrox/Mg Hydrox/Simethicone 30 ml 06/19/18 17:21 Maalox Plus 30 Ml PO Q4 PRN Dyspepsia Apixaban 5 mg 06/20/18 09:00 06/20/18 08:44 Eliquis PO 5 mg BID@0900,2100 MARYCHUY Administration Protocol Bismuth Subsalicylate 524 mg 06/19/18 17:21 Pepto-Bismol PO Q4 PRN Diarrhea Ibuprofen 600 mg 06/19/18 21:38 06/20/18 08:46 Motrin Tab PO 600 mg Q6 PRN Administration Other Lorazepam 0.5 mg 06/19/18 17:21 Ativan PO 07/03/18 17:22 HS PRN Insomnia Lorazepam 0.5 mg 06/19/18 17:21 Ativan PO 07/03/18 17:22 Q6 PRN Anixety/Agitation Magnesium Hydroxide 30 ml 06/19/18 17:21 Milk Of Magnesia PO HS PRN Constipation Past Psychiatric History - Past Psychiatric History Previous Treatment History: Inpatient Pertinent Medical Hx (Current Medical&Sleep Prob, Allergies): Allergies Allergy/AdvReac Type Severity Reaction Status Date / Time No Known Allergies Allergy Verified 06/18/18 09:43 Apixaban [Eliquis] 5 mg PO BID #60 tablet 06/16/18 Ibuprofen [Motrin] 600 mg PO Q6 #100 tab 06/16/18 Review of Systems - Psychiatric Psychiatric: Anxiety, Change in Appetite, Depression, Difficulty Concentrating, Suicidal Ideation Mental Status Examination - Personal Presentation Personal Presentation: Looks stated age - Affect Affect: Constricted - Motor Activity Motor Activity: Calm - Reliability in Providing Information Reliability in Providing Information: Fair - Speech Speech: Coherent - Mood Mood: Depressed - Formal Thought Process Formal Thought Process: No Impairment - Hallucinations/Delusions Additional comments: No AH/VH/paranoia/delusions - Obsessions/Compulsions Obsessions: No Compulsions: No - Cognitive Functions Orientation: Person, Place, Situation, Time Sensorium: Alert Attention/Concentration: Attentive Judgement: Intact, as evidence by: Insight regarding need for hospitalization - Risk Risk: Suicidal, Diminished functioning - Strength & Assets Inventory Strength & Assets Inventory: Cooperative - Limitations Limitations: Decreased memory, recent DSM 5 DX - DSM 5 DSM 5 Diagnosis: Depressive Disorder - Recommended/Plan of Treatment Treatment Recommendations and Plan of Treatment: Depressive Disorder -Admit to psychiatry unit -Patient not agreeable to taking antidepressants at night; will monitor for safety and continue to discuss treatment options -Medicine consult -Individual and group therapy -Psychoeducation -Disposition planning Discharge Plan and Discharge Criteria: Discharge when patient is psychiatrically stable
[2018-06-20 17:44] LABS: FOLATE 15.9 ng/mL
--- NOTE | 2018-06-21 09:01 | PCM.PYCHPN ---
Psychiatric Progress Note - Psychiatric Progress Note Patient seen today, length of contact: Patient evaluated, case discussed w/ team , chart reviewed Patient Chief Complaint: Depression Problems Identified/Issues Discussed: Patient continues to have constricted affect. He denies active suicidal ideation/plan/intent, but reports that he would rather be than experience his chronic leg pain. He is encouraged to get out of bed, participate in group and shower. He denies acute AH/VH/HI. He continues to refuse treatment w/ antidepressants and treatment for dementia. He has poor insight into his memory deficits. Medication Change: No Medical Record Reviewed: Yes Consults ordered or reviewed: Medicine consult Psychology consult: Pt is a 72 year old male admitted to [facility] and referred to the typewriters functional tester for evaluation. ON the DRS, pt scored an overall score of 104. P scored within normal limits on Attention, and Construction tasks. Pt's Memory, Initiation, and Conceptualization skills all fell in the deficient Range. pt was not oriented and had difficulty recalling governor, mayor, and current location. Overall 104 Attention 35 wnl Memory 12 deficient Initiation 29 deficient Construction 4 wnl conceptualization 24 Supervision of this patient recommended upon discharge. Mental Status Examination - Cognitive Function Orientation: Person, Place, Situation, Time Memory: Impaired Association: WNL Decription of patient's judgement and insights: Poor I/J - Mood Mood: Neutral - Affect Affect: Constricted - Speech Speech: Appropriate - Formal Thought Process Formal Thought Process: No Impairment Psychotic Thoughts and Behaviors: NO AH/VH/paranoia/delusions - Suicidal Ideation Suicidal Ideation: No - Homicidal Ideation Homicidal Ideation: No Goal/Treatment Plan - Goal/Treatment Plan Need for Continued Stay: Severe depression anxiety, Discharge may exacerbated symptoms, Severe functional impairment Progress Toward Problem(s) and Goals/Treatment Plan: Depressive Disorder; Dementia -Patient not agreeable to taking antidepressants or medications for dementia; will continue to monitor for safety and continue to discuss treatment options -Medicine consult -Psychology consult -Individual and group therapy -Psychoeducation -Disposition planning- will consider fpc placement if patient is agreeable Estimated Date of D/C: 06/26/18
--- NOTE | 2018-06-21 11:18 | CP.PCM.CON ---
History of Present Illness - History of Present Illness History of Present Illness: Pt is a 72 year old male admitted to [facility] and referred to the curriculum writer for evaluation. ON the DRS, pt scored an overall score of 104. P scored within normal limits on Attention, and Construction tasks. Pt's Memory, Initiation, and Conceptualization skills all fell in the deficient Range. pt was not oriented and had difficulty recalling governor, mayor, and current location. Overall 104 Attention 35 wnl Memory 12 deficient Initiation 29 deficient Construction 4 wnl conceptualization 24 Supervision of this patient recommended upon discharge. Thank you for this referral, Past Patient History - Infectious Disease Hx of Infectious Diseases: None - Past Medical History & Family History Past Medical History?: Yes - Past Social History Smoking Status: Never Smoked - CARDIAC Hx Cardiac Disorders: No Hx Circulatory Problems: Yes (DVT) - PULMONARY Hx Asthma: Yes Hx Bronchitis: No Hx Tuberculosis: No - NEUROLOGICAL Hx Neurological Disorder: No HX Cerebrovascular Accident: No Hx Seizures: No - HEENT Hx HEENT Problems: No - RENAL Hx Chronic Kidney Disease: No - ENDOCRINE/METABOLIC Hx Endocrine Disorders: No - HEMATOLOGICAL/ONCOLOGICAL Hx Blood Disorders: No Hx Cancer: No Hx Human Immunodeficiency Virus (HIV): No - INTEGUMENTARY Hx Dermatological Problems: No - MUSCULOSKELETAL/RHEUMATOLOGICAL Hx Musculoskeletal Disorders: Yes Hx Back Pain: Yes Hx Falls: No - GASTROINTESTINAL Hx Gastrointestinal Disorders: No - GENITOURINARY/GYNECOLOGICAL Hx Genitourinary Disorders: No Hx Sexually Transmitted Disorders: No - PSYCHIATRIC Hx Depression: Yes Hx Emotional Abuse: No Hx Physical Abuse: No Hx Sexual Abuse: No Hx Substance Use: No - SURGICAL HISTORY Hx Surgeries: Yes Hx Orthopedic Surgery: Yes (lt. leg) - ANESTHESIA Hx Anesthesia: Yes Hx Anesthesia Reactions: No Hx Malignant Hyperthermia: No Meds Allergies/Adverse Reactions: Allergies Allergy/AdvReac Type Severity Reaction Status Date / Time No Known Allergies Allergy Verified 06/18/18 09:43 - Medications Medications: Current Medications Acetaminophen (Tylenol 325mg Tab) 650 mg PO Q4 PRN PRN Reason: Pain, moderate (4-7) Al Hydrox/Mg Hydrox/Simethicone (Maalox Plus 30 Ml) 30 ml PO Q4 PRN PRN Reason: Dyspepsia Apixaban (Eliquis) 5 mg PO BID@0900,2100 MARYCHUY PRN Reason: Protocol Last Admin: 08/31/18 08:33 Dose: 5 mg Bismuth Subsalicylate (Pepto-Bismol) 524 mg PO Q4 PRN PRN Reason: Diarrhea Folic Acid (Folic Acid) 1 mg PO DAILY [facility] Last Admin: 06/21/18 08:34 Dose: 1 mg Ibuprofen (Motrin Tab) 600 mg PO Q6 PRN PRN Reason: Other Last Admin: 06/20/18 08:46 Dose: 600 mg Lorazepam (Ativan) 0.5 mg PO HS PRN PRN Reason: Insomnia Stop: 07/03/18 17:22 Last Admin: 06/21/18 02:33 Dose: 0.5 mg Lorazepam (Ativan) 0.5 mg PO Q6 PRN PRN Reason: Anixety/Agitation Stop: 07/03/18 17:22 Magnesium Hydroxide (Milk Of Magnesia) 30 ml PO HS PRN PRN Reason: Constipation Thiamine HCl (Vitamin B1 Tab) 100 mg PO DAILY [facility] Last Admin: 06/21/18 08:34 Dose: 100 mg Results - Vital Signs Recent Vital Signs: Last Vital Signs Temp 97.1 F L 06/21/18 06:00 Pulse 81 06/21/18 06:00 Resp 19 06/21/18 06:00 BP 117/63 06/21/18 06:00 Pulse Ox 97 06/19/18 14:16 - Labs Result Diagrams: 06/20/18 06:38 06/20/18 06:38 Labs: Laboratory Results - last 24 hr 06/20/18 06/20/18 06:38 06:38 Folate 15.9 RPR Nonreactive
[2018-06-21 15:43] VITALS: O2SAT 98
--- NOTE | 2018-06-22 12:44 | PCM.PYCHPN ---
Psychiatric Progress Note - Psychiatric Progress Note Patient seen today, length of contact: Patient evaluated, case discussed w/ team , chart reviewed Patient Chief Complaint: I am tired Problems Identified/Issues Discussed: pt evaluated in bed, soft and underproductive speech, constricted affect, denied any current S/HI no reported side effects of medications DSM 5 Symptoms Update: depression Medication Change: No Medical Record Reviewed: Yes Mental Status Examination - Cognitive Function Orientation: Person, Place, Situation, Time Memory: Impaired Association: WNL - Mood Mood: Neutral - Affect Affect: Constricted - Speech Speech: Appropriate - Formal Thought Process Formal Thought Process: No Impairment Psychotic Thoughts and Behaviors: pt denied perceptual disturbances, non elicited - Suicidal Ideation Suicidal Ideation: No - Homicidal Ideation Homicidal Ideation: No Goal/Treatment Plan - Goal/Treatment Plan Need for Continued Stay: Severe depression anxiety, Discharge may exacerbated symptoms, Severe functional impairment Progress Toward Problem(s) and Goals/Treatment Plan: continue current medications group and supportive therapy Estimated Date of D/C: 06/26/18
--- NOTE | 2018-06-23 12:39 | PCM.PYCHPN ---
Psychiatric Progress Note - Psychiatric Progress Note Patient seen today, length of contact: Patient evaluated, case discussed w/ team , chart reviewed Patient Chief Complaint: I am good Problems Identified/Issues Discussed: pt evaluated in bed, reported better mood feeling depressed, pt signed 48 hour notice requesting to be discharged psychoeducation provided advised pt importance to continue with treatment pt denied any current suicidal or homicidal ideation, denied perceptual disturbances DSM 5 Symptoms Update: depression Medication Change: No Medical Record Reviewed: Yes Mental Status Examination - Cognitive Function Orientation: Person, Place, Situation, Time Memory: Impaired Attention: WNL Concentration: WNL Association: WNL Fund of Knowledge: Poor Decription of patient's judgement and insights: poor insight and judgment - Mood Mood: Neutral - Affect Affect: Constricted - Speech Speech: Appropriate - Formal Thought Process Formal Thought Process: No Impairment Psychotic Thoughts and Behaviors: pt denied perceptual disturbances, non elicited - Suicidal Ideation Suicidal Ideation: No - Homicidal Ideation Homicidal Ideation: No Goal/Treatment Plan - Goal/Treatment Plan Need for Continued Stay: Severe depression anxiety, Discharge may exacerbated symptoms, Severe functional impairment Progress Toward Problem(s) and Goals/Treatment Plan: continue current medications group and supportive therapy Estimated Date of D/C: 06/24/18
--- NOTE | 2018-06-24 08:42 | PCM.PYCHPN ---
Psychiatric Progress Note - Psychiatric Progress Note Patient seen today, length of contact: Patient evaluated, case discussed w/ team , chart reviewed Patient Chief Complaint: Depression Problems Identified/Issues Discussed: Patient retracted his 48 hr letter and is willing to stay in the hospital to participate in treatment and therapy. He continues to have constricted affect and poor insight into his memory deficits. Rail Assembler attempted to provided psychoeducation that the patient would benefit from treatment w/ medications but he is not agreeable at this time. He denies acute AH/VH/SI/HI. Medication Change: No Medical Record Reviewed: Yes Consults ordered or reviewed: Medicine consult Psychology consult: Pt is a 72 year old male admitted to [facility] and referred to the radio script writer for evaluation. ON the DRS, pt scored an overall score of 104. P scored within normal limits on Attention, and Construction tasks. Pt's Memory, Initiation, and Conceptualization skills all fell in the deficient Range. pt was not oriented and had difficulty recalling governor, mayor, and current location. Overall 104 Attention 35 wnl Memory 12 deficient Initiation 29 deficient Construction 4 wnl conceptualization 24 Supervision of this patient recommended upon discharge. Mental Status Examination - Cognitive Function Orientation: Person, Place, Situation, Time Memory: Impaired Attention: Poor Concentration: Poor Fund of Knowledge: WNL Decription of patient's judgement and insights: Poor I/J - Mood Mood: Neutral - Affect Affect: Constricted - Speech Speech: Appropriate - Formal Thought Process Formal Thought Process: No Impairment Psychotic Thoughts and Behaviors: Denies AH/VH/paranoia/delusions - Suicidal Ideation Suicidal Ideation: No - Homicidal Ideation Homicidal Ideation: No Goal/Treatment Plan - Goal/Treatment Plan Need for Continued Stay: Severe depression anxiety, Discharge may exacerbated symptoms, Severe functional impairment Progress Toward Problem(s) and Goals/Treatment Plan: Depressive Disorder; Dementia -Patient not agreeable to taking antidepressants or medications for dementia; will continue to monitor for safety and continue to discuss treatment options -Medicine consult -Psychology consult -Individual and group therapy -Psychoeducation -Disposition planning- will consider snf placement if patient is agreeable Estimated Date of D/C: 06/27/18
--- NOTE | 2018-06-24 10:52 | CP.PCM.CON ---
History of Present Illness - History of Present Illness History of Present Illness: 72 yo male with history of DVT of the left leg but non-compliant with medication was admitted to [facility] because of depression. Review of Systems - Review of Systems All systems: reviewed and no additional remarkable complaints except (aside from those mentioned above, 12 point system review were negative by me) Past Patient History - Infectious Disease Hx of Infectious Diseases: None - Past Medical History & Family History Past Medical History?: Yes - Past Social History Smoking Status: Light Smoker < 10 Cigarettes Daily Chewing Tobacco Use: No Cigar Use: No Alcohol: < 2 Drinks/Day Drugs: Denies Home Situation {Lives}: Homeless - CARDIAC Hx Hypertension: No - PULMONARY Hx Asthma: Yes Hx Bronchitis: No Hx Tuberculosis: No - NEUROLOGICAL Hx Seizures: No - HEENT Hx HEENT Problems: No - RENAL Hx Chronic Kidney Disease: No - ENDOCRINE/METABOLIC Hx Endocrine Disorders: No - HEMATOLOGICAL/ONCOLOGICAL Hx Human Immunodeficiency Virus (HIV): No - INTEGUMENTARY Hx Dermatological Problems: No - MUSCULOSKELETAL/RHEUMATOLOGICAL Hx Arthritis: Yes (BACK) Hx Fractures: Yes - GASTROINTESTINAL Hx Gastrointestinal Disorders: No - GENITOURINARY/GYNECOLOGICAL Hx Sexually Transmitted Disorders: No - PSYCHIATRIC Hx Anxiety: Yes Hx Depression: Yes - SURGICAL HISTORY Hx Surgeries: Yes Hx Orthopedic Surgery: Yes (lt. leg) - ANESTHESIA Hx Anesthesia: Yes Hx Anesthesia Reactions: No Hx Malignant Hyperthermia: No Meds Allergies/Adverse Reactions: Allergies Allergy/AdvReac Type Severity Reaction Status Date / Time No Known Allergies Allergy Verified 06/18/18 09:43 - Medications Medications: Current Medications Acetaminophen (Tylenol 325mg Tab) 650 mg PO Q4 PRN PRN Reason: Pain, moderate (4-7) Al Hydrox/Mg Hydrox/Simethicone (Maalox Plus 30 Ml) 30 ml PO Q4 PRN PRN Reason: Dyspepsia Apixaban (Eliquis) 5 mg PO BID@0900,2100 MARYCHUY PRN Reason: Protocol Last Admin: 06/24/18 08:11 Dose: 5 mg Bismuth Subsalicylate (Pepto-Bismol) 524 mg PO Q4 PRN PRN Reason: Diarrhea Folic Acid (Folic Acid) 1 mg PO DAILY [facility] Last Admin: 06/24/18 08:14 Dose: 1 mg Ibuprofen (Motrin Tab) 600 mg PO Q6 PRN PRN Reason: Other Last Admin: 06/24/18 08:12 Dose: 600 mg Magnesium Hydroxide (Milk Of Magnesia) 30 ml PO HS PRN PRN Reason: Constipation Multivitamins/Minerals (Therapeutic-M Tab) 1 tab PO DAILY MARYCHUY Thiamine HCl (Vitamin B1 Tab) 100 mg PO DAILY MARYCHUY Last Admin: 06/24/18 08:14 Dose: 100 mg Physical Exam - Constitutional Appears: No Acute Distress - Head Exam Head Exam: ATRAUMATIC - Eye Exam Eye Exam: absent: Scleral icterus - ENT Exam ENT Exam: Mucous Membranes Moist - Neck Exam Neck exam: Negative for: Meningismus - Respiratory Exam Respiratory Exam: absent: Rales, Rhonchi, Wheezes, Respiratory Distress - Cardiovascular Exam Cardiovascular Exam: REGULAR RHYTHM, +S1, +S2 - GI/Abdominal Exam GI & Abdominal Exam: Soft. absent: Tenderness - Rectal Exam Rectal Exam: Deferred - Extremities Exam Extremities exam: Negative for: calf tenderness, pedal edema - Back Exam Back exam: NORMAL INSPECTION - Neurological Exam Neurological exam: Alert, Oriented x3 - Psychiatric Exam Psychiatric exam: Normal Affect - Skin Skin Exam: Dry, Intact, Normal Color Results - Vital Signs Recent Vital Signs: Last Vital Signs Temp 97.1 F L 06/24/18 06:00 Pulse 72 06/24/18 06:00 Resp 18 06/24/18 06:00 BP 115/71 06/24/18 06:00 Pulse Ox 98 06/21/18 15:43 - Labs Result Diagrams: 06/20/18 06:38 06/20/18 06:38 Assessment & Plan (1) Depression Status: Acute Comment: psyche is managing (2) History of DVT (deep vein thrombosis) Status: Acute Comment: continue Eliquis 5mg PO BID
[2018-06-25] MEDS: Multivitamin With Minerals Tab PO SCH (08:27)
--- NOTE | 2018-06-25 09:23 | PCM.PYCHPN ---
Psychiatric Progress Note - Psychiatric Progress Note Patient seen today, length of contact: Patient evaluated, case discussed w/ team , chart reviewed Patient Chief Complaint: Inability to care for self Problems Identified/Issues Discussed: Patient is agreeable to taking Namenda for dementia, but continues to have poor insight into this memory deficits and poor self care. Patient is agreeable to residential placement. Psychoeducation provided on the importance of self care and the importance of compliance with treatment. He denies acute AH/VH/SI/ HI. Medication Change: Yes (Start Namenda) Medical Record Reviewed: Yes Consults ordered or reviewed: Medicine consult Psychology consult: Pt is a 72 year old male admitted to [facility] and referred to the com writer for evaluation. ON the DRS, pt scored an overall score of 104. P scored within normal limits on Attention, and Construction tasks. Pt's Memory, Initiation, and Conceptualization skills all fell in the deficient Range. pt was not oriented and had difficulty recalling governor, mayor, and current location. Overall 104 Attention 35 wnl Memory 12 deficient Initiation 29 deficient Construction 4 wnl conceptualization 24 Supervision of this patient recommended upon discharge. Mental Status Examination - Cognitive Function Orientation: Person, Place, Situation, Time Memory: Impaired Attention: Poor Concentration: Poor Association: WNL Fund of Knowledge: Poor Decription of patient's judgement and insights: Poor I/J - Mood Mood: Neutral - Affect Affect: Constricted - Speech Speech: Appropriate - Formal Thought Process Formal Thought Process: No Impairment Psychotic Thoughts and Behaviors: Denies AH/VH/paranoia/delusions - Suicidal Ideation Suicidal Ideation: No - Homicidal Ideation Homicidal Ideation: No Goal/Treatment Plan - Goal/Treatment Plan Need for Continued Stay: Discharge may exacerbated symptoms, Severe functional impairment Progress Toward Problem(s) and Goals/Treatment Plan: Primary diagnosis is Dementia w/o behavioral disturbance; Depressive Disorder -Start Namenda -Medicine consult -Psychology consult -Individual and group therapy -Psychoeducation -Disposition planning- will seek residential placement as patient is unable to care for himself in the community Estimated Date of D/C: 07/05/18
[2018-06-26] MEDS: Multivitamin With Minerals Tab PO SCH (08:35)
--- NOTE | 2018-06-26 08:41 | PCM.PYCHPN ---
Psychiatric Progress Note - Psychiatric Progress Note Patient seen today, length of contact: Patient evaluated, case discussed w/ team , chart reviewed Patient Chief Complaint: Inability to care for self Problems Identified/Issues Discussed: We discussed [place] [facility] as he is unable to take care of his basic needs due to cognitive deficits. He has poor insight into his memory deficits. He needs encouragement to shower. He eats well as food is provided for him in the hospital, but it is unclear if patient is organized enough in the community to provide adequate nutrition for himself. He denies acute AH/VH/SI/HI. Medication Change: No Medical Record Reviewed: Yes Consults ordered or reviewed: Medicine consult Psychology consult: Pt is a 72 year old male admitted to [facility] and referred to the underwriter solicitation director for evaluation. ON the DRS, pt scored an overall score of 104. P scored within normal limits on Attention, and Construction tasks. Pt's Memory, Initiation, and Conceptualization skills all fell in the deficient Range. pt was not oriented and had difficulty recalling governor, mayor, and current location. Overall 104 Attention 35 wnl Memory 12 deficient Initiation 29 deficient Construction 4 wnl conceptualization 24 Supervision of this patient recommended upon discharge. Mental Status Examination - Cognitive Function Orientation: Person, Place, Situation, Time Memory: Impaired Attention: Poor Concentration: Poor Association: WNL Fund of Knowledge: Poor Decription of patient's judgement and insights: Poor I/J - Mood Mood: Neutral - Affect Affect: Constricted - Speech Speech: Appropriate - Formal Thought Process Formal Thought Process: No Impairment Psychotic Thoughts and Behaviors: Denies AH/VH/paranoia/delusions - Suicidal Ideation Suicidal Ideation: No - Homicidal Ideation Homicidal Ideation: No Goal/Treatment Plan - Goal/Treatment Plan Need for Continued Stay: Discharge may exacerbated symptoms, Severe functional impairment Progress Toward Problem(s) and Goals/Treatment Plan: Dementia w/o behavioral disturbance; Depressive Disorder -Continue Namenda -Medicine consult -Psychology consult -Individual and group therapy -Psychoeducation -Disposition planning- will seek [place] [facility] placement as patient is unable to care for himself in the community Estimated Date of D/C: 07/05/18
[2018-06-27] MEDS: Multivitamin With Minerals Tab PO SCH (08:39)
--- NOTE | 2018-06-27 08:49 | PCM.PYCHPN ---
Psychiatric Progress Note - Psychiatric Progress Note Patient seen today, length of contact: Patient evaluated, case discussed w/ team , chart reviewed Patient Chief Complaint: Inability to care for self Problems Identified/Issues Discussed: No new events overnight. Patient continues to have chronic memory deficits which limit his ability to care for himself. Patient aware that we are seeking senior care placement and is agreeable. He denies acute AH/VH/SI/HI. Medication Change: No Medical Record Reviewed: Yes Consults ordered or reviewed: Medicine consult Psychology consult: Pt is a 72 year old male admitted to [facility] and referred to the specifications writer for evaluation. ON the DRS, pt scored an overall score of 104. P scored within normal limits on Attention, and Construction tasks. Pt's Memory, Initiation, and Conceptualization skills all fell in the deficient Range. pt was not oriented and had difficulty recalling governor, mayor, and current location. Overall 104 Attention 35 wnl Memory 12 deficient Initiation 29 deficient Construction 4 wnl conceptualization 24 Supervision of this patient recommended upon discharge. Mental Status Examination - Cognitive Function Orientation: Person, Place, Situation, Time Memory: Impaired Attention: Poor Concentration: Poor Association: WNL Fund of Knowledge: Poor Decription of patient's judgement and insights: Poor I/J - Mood Mood: Neutral - Affect Affect: Constricted - Speech Speech: Appropriate - Formal Thought Process Formal Thought Process: No Impairment Psychotic Thoughts and Behaviors: Denies AH/VH/paranoia/delusions - Suicidal Ideation Suicidal Ideation: No - Homicidal Ideation Homicidal Ideation: No Goal/Treatment Plan - Goal/Treatment Plan Need for Continued Stay: Discharge may exacerbated symptoms, Severe functional impairment Progress Toward Problem(s) and Goals/Treatment Plan: Dementia w/o behavioral disturbance; Depressive Disorder -Continue Namenda -Medicine consult -Psychology consult -Individual and group therapy -Psychoeducation -Disposition planning- will seek senior care placement as patient is unable to care for himself in the community Estimated Date of D/C: 07/05/18
--- NOTE | 2018-06-28 08:27 | PCM.PYCHPN ---
Psychiatric Progress Note - Psychiatric Progress Note Patient seen today, length of contact: Patient evaluated, case discussed w/ team , chart reviewed Patient Chief Complaint: Inability to care for self Problems Identified/Issues Discussed: No new events overnight. Patient continues to have chronic memory deficits which limit his ability to care for himself. Patient aware that we are seeking skilled nursing placement and is agreeable. He denies acute AH/VH/SI/HI. No violence/ aggression or agitation. Patient is at his baseline of functioning and psychiatrically stable for referral to skilled nursing placement. Medication Change: No Medical Record Reviewed: Yes Consults ordered or reviewed: Medicine consult Psychology consult: Pt is a 72 year old male admitted to [facility] and referred to the caption writer for evaluation. ON the DRS, pt scored an overall score of 104. P scored within normal limits on Attention, and Construction tasks. Pt's Memory, Initiation, and Conceptualization skills all fell in the deficient Range. pt was not oriented and had difficulty recalling governor, mayor, and current location. Overall 104 Attention 35 wnl Memory 12 deficient Initiation 29 deficient Construction 4 wnl conceptualization 24 Supervision of this patient recommended upon discharge. Mental Status Examination - Cognitive Function Orientation: Person, Place, Situation, Time Memory: Impaired Attention: Poor Concentration: Poor Association: WNL Fund of Knowledge: Poor Decription of patient's judgement and insights: Poor I/J - Mood Mood: Neutral - Affect Affect: Constricted - Speech Speech: Appropriate - Formal Thought Process Formal Thought Process: No Impairment Psychotic Thoughts and Behaviors: Denies AH/VH/paranoia/delusions - Suicidal Ideation Suicidal Ideation: No - Homicidal Ideation Homicidal Ideation: No Goal/Treatment Plan - Goal/Treatment Plan Need for Continued Stay: Discharge may exacerbated symptoms, Severe functional impairment Progress Toward Problem(s) and Goals/Treatment Plan: Dementia w/o behavioral disturbance; Depressive Disorder; Patient is psychiatrically stable for skilled nursing placement -Continue Namenda -Medicine consult -Psychology consult -Individual and group therapy -Psychoeducation -Disposition planning- will seek skilled nursing placement as patient is unable to care for himself in the community Estimated Date of D/C: 07/05/18
[2018-06-28] MEDS: Multivitamin With Minerals Tab PO SCH (08:34)
--- NOTE | 2018-06-28 12:01 | PCM.BM ---
Treatment Plan Problems - Problems identified on initial assessmt hopeless/helplessness Date Initiated: 06/19/18 Time Initiated: 18:14 Assessment reference: NA Status: Active Priority: 1 medication adherence Date Initiated: 06/19/18 Time Initiated: 18:15 Assessment reference: NA Status: Active Priority: 2 Treatment assets and liabiliti Patient Assests: cooperative, ADL independent, physically healthy, negotiates basic needs, cognitively intact Patient Liabilities: poor support system, medical problems, other (homeless) - Milieu Protocol Maintain good personal hygiene: every shift Encourage regular showers, every shift Remind patient to perform daily oral care, every shift Assist patient to perform ADL's Maintain personal safety: every shift Educate patient to report safety concerns to staff, every shift Monitor environment for contraband/sharps Medication safety: Monitor for expected outcome, potential side effects: every shift, Assess barriers to learning: every shift, Assess readiness for medication education: every shift Milieu Narrative: Dementia w/o behavioral disturbance; Depressive Disorder; Patient is psychiatrically stable for retirement placement -Continue [facility] -Medicine consult -Psychology consult -Individual and group therapy -Psychoeducation -Disposition planning- will seek retirement placement as patient is unable to care for himself in the community Family Contact Family involvement: No known Family/SO - Outside Agency [facility] Care involvment: Not involved - Goals for Treatment Patient goals for treatment: "My pain to go away." Discharge/Continuing Care - Education Needs Education Needs: Family Medication, Family Diagnosis/Disease Process, Family Coping Skills, Family Placement options, Family Community resources, Family Health Practices/Safety, Family Personal Hygiene/Grooming, Family Aftercare Safety Plan - Discharge Discharge Criteria: Tolerates medication w/o severe side effects, Free of Suicidal thoughts, Ability to care for self, Reduction of target symptoms Discharge to:: [facility] - Additional Comments 06/21/18 14:58 Pt seen and discussed in team meeting. Reason for hospitalization reviewed and discussed. Pt reported he was admitted due to "too much pain." Pt denied symptoms of depression and anxiety. Pt denied having memory issues stating "perfect." Foreign Correspondent reviewed and discussed neuropscyh evaluation and results. Pt verbalize that he disagrees with the final results of the testing. Foreign Correspondent inquired about suicidal statement that pt mentioned prior to hospitalization stating "I rather ." Pt reported that he rather than to live with the pain. Pt is homeless and unable to care for himself in the community. Pt's social and emotional issues reviewed and discussed. Tx plan reviewed and discussed. Foreign Correspondent reviewed NH placement if he meets criteria and pt verbalized agreement. SW to continue to follow case. - Treatment Team Participation Patient/Family/SO Statement: Dementia w/o behavioral disturbance; Depressive Disorder; Patient is psychiatrically stable for retirement placement -Continue [facility] -Medicine consult -Psychology consult -Individual and group therapy -Psychoeducation -Disposition planning- will seek retirement placement as patient is unable to care for himself in the community Discussed with Family/SO: No Was Patient/Family/SO present at Treatment Team Meeting: Yes Treatment Plan Review Patient participation: Yes Family/SO/Caregiver participation: No Additional Comments: Pt seen and discussed in team meeting. Pt's progress and bx on the unit reviewed. Pt reported feeling "so so." Pt observed to be in discomfort due to leg pain. Pt observed massaging his leg during team meeting. Pt reported constant pain in his leg with little relief from medication. Attending psychiatrist, reviewed DVT with pt and psycho-education provided. Pt's medications reviewed and discussed. Pt's current treatment regimen reviewed and agreeable. Psycho-education provided the importance of medication compliance and adequate medical treatment. longterm placement discussed and pt is agreeable/ Foreign Correspondent reviewed referral to [facility] and/or [facility] and pt opted for [facility]. Referral process explained to pt. Foreign Correspondent will continue to follow case and initiate referral to [facility]. - Problem hopeless/helplessness Date Initiated: 06/19/18 Time Initiated: 18:14 Progress toward outcomes: improved medication adherence Date Initiated: 06/19/18 Time Initiated: 18:15 Progress toward outcomes: improved - Discharge / Continuing Care [facility]charge [facility]:: [facility]: Other (Medication Management) Health Needs: Follow up care/test, Doctor appointments, Special equipment, Nutritional, Medications/Rx, Educational
--- NOTE | 2018-06-29 08:18 | PCM.PYCHPN ---
Psychiatric Progress Note - Psychiatric Progress Note Patient seen today, length of contact: Patient evaluated, case discussed w/ team , chart reviewed Patient Chief Complaint: Inability to care for self Problems Identified/Issues Discussed: No new events. Patient continues to have chronic memory deficits which limit his ability to care for himself. Patient aware that we are seeking detention placement and is agreeable. He denies acute AH/VH/SI/HI. No violence/ aggression or agitation. Patient is at his baseline of functioning and psychiatrically stable for referral to detention placement. Medication Change: No Medical Record Reviewed: Yes Consults ordered or reviewed: Medicine consult Psychology consult: Pt is a 72 year old male admitted to [facility] and referred to the instructional writer for evaluation. ON the DRS, pt scored an overall score of 104. P scored within normal limits on Attention, and Construction tasks. Pt's Memory, Initiation, and Conceptualization skills all fell in the deficient Range. pt was not oriented and had difficulty recalling governor, mayor, and current location. Overall 104 Attention 35 wnl Memory 12 deficient Initiation 29 deficient Construction 4 wnl conceptualization 24 Supervision of this patient recommended upon discharge. Mental Status Examination - Cognitive Function Orientation: Person, Place, Situation, Time Memory: Impaired Attention: Poor Concentration: Poor Association: WNL Fund of Knowledge: Poor Decription of patient's judgement and insights: Poor I/J - Mood Mood: Neutral - Affect Affect: Constricted - Speech Speech: Appropriate - Formal Thought Process Formal Thought Process: No Impairment Psychotic Thoughts and Behaviors: Denies AH/VH/paranoia/delusions - Suicidal Ideation Suicidal Ideation: No - Homicidal Ideation Homicidal Ideation: No Goal/Treatment Plan - Goal/Treatment Plan Need for Continued Stay: Discharge may exacerbated symptoms, Severe functional impairment Progress Toward Problem(s) and Goals/Treatment Plan: Dementia w/o behavioral disturbance; Depressive Disorder; Patient is psychiatrically stable for detention placement -Continue [facility] -Medicine consult -Psychology consult -Individual and group therapy -Psychoeducation -Disposition planning- will seek detention placement as patient is unable to care for himself in the community Estimated Date of D/C: 07/05/18
[2018-06-29] MEDS: Multivitamin With Minerals Tab PO SCH (08:27)
[2018-06-30] MEDS: Multivitamin With Minerals Tab PO SCH (08:31)
--- NOTE | 2018-06-30 08:37 | PCM.PYCHPN ---
Psychiatric Progress Note - Psychiatric Progress Note Patient seen today, length of contact: Patient evaluated, case discussed w/ team , chart reviewed Patient Chief Complaint: Inability to care for self Problems Identified/Issues Discussed: No new events overnight. Patient continues to have chronic memory deficits which limit his ability to care for himself. Patient aware that we are seeking longterm placement and is agreeable. He denies acute AH/VH/SI/HI. No violence/ aggression or agitation. Patient is at his baseline of functioning and psychiatrically stable for referral to longterm placement. Medication Change: No Medical Record Reviewed: Yes Mental Status Examination - Cognitive Function Orientation: Person, Place, Situation, Time Memory: Impaired Attention: Poor Concentration: Poor Association: WNL Fund of Knowledge: Poor Decription of patient's judgement and insights: Poor I/J - Mood Mood: Neutral - Affect Affect: Constricted - Speech Speech: Appropriate - Formal Thought Process Formal Thought Process: No Impairment Psychotic Thoughts and Behaviors: Denies AH/VH/paranoia/delusions - Suicidal Ideation Suicidal Ideation: No - Homicidal Ideation Homicidal Ideation: No Goal/Treatment Plan - Goal/Treatment Plan Need for Continued Stay: Discharge may exacerbated symptoms, Severe functional impairment Progress Toward Problem(s) and Goals/Treatment Plan: Dementia w/o behavioral disturbance; Depressive Disorder; Patient is psychiatrically stable for longterm placement -Continue [facility] -Medicine consult -Psychology consult -Individual and group therapy -Psychoeducation -Disposition planning- will seek longterm placement as patient is unable to care for himself in the community Estimated Date of D/C: 07/05/18
--- NOTE | 2018-07-01 08:16 | PCM.PYCHPN ---
Psychiatric Progress Note - Psychiatric Progress Note Patient seen today, length of contact: Patient evaluated, case discussed w/ team , chart reviewed Patient Chief Complaint: Inability to care for self Problems Identified/Issues Discussed: No new events. Patient pending assisted placement. Patient continues to have chronic memory deficits which limit his ability to care for himself. Patient aware that we are seeking assisted placement and is agreeable. He denies acute AH/VH/SI/HI. No violence/ aggression or agitation. Patient is at his baseline of functioning and psychiatrically stable for referral to assisted placement. Medication Change: No Medical Record Reviewed: Yes Consults ordered or reviewed: Medicine consult Psychology consult: Pt is a 72 year old male admitted to [facility] and referred to the handbook writer for evaluation. ON the DRS, pt scored an overall score of 104. P scored within normal limits on Attention, and Construction tasks. Pt's Memory, Initiation, and Conceptualization skills all fell in the deficient Range. pt was not oriented and had difficulty recalling governor, mayor, and current location. Overall 104 Attention 35 wnl Memory 12 deficient Initiation 29 deficient Construction 4 wnl conceptualization 24 Supervision of this patient recommended upon discharge. Mental Status Examination - Cognitive Function Orientation: Person, Place, Situation, Time Memory: Impaired Attention: Poor Concentration: Poor Association: WNL Fund of Knowledge: Poor Decription of patient's judgement and insights: Limited I/J due to chronic dementia - Mood Mood: Neutral - Affect Affect: Broad - Speech Speech: Appropriate - Formal Thought Process Formal Thought Process: No Impairment Psychotic Thoughts and Behaviors: Denies AH/VH/paranoia/delusions - Suicidal Ideation Suicidal Ideation: No - Homicidal Ideation Homicidal Ideation: No Goal/Treatment Plan - Goal/Treatment Plan Need for Continued Stay: Severe functional impairment Progress Toward Problem(s) and Goals/Treatment Plan: Dementia w/o behavioral disturbance; Depressive Disorder; Patient is psychiatrically stable for assisted placement -Continue [facility] -Medicine consult -Psychology consult -Individual and group therapy -Psychoeducation -Disposition planning- pending assisted placement. Estimated Date of D/C: 07/05/18
[2018-07-01] MEDS: Multivitamin With Minerals Tab PO SCH (08:45)
--- NOTE | 2018-07-02 08:04 | PCM.PYCHPN ---
Psychiatric Progress Note - Psychiatric Progress Note Patient seen today, length of contact: Patient evaluated, case discussed w/ team , chart reviewed Patient Chief Complaint: Inability to care for self Problems Identified/Issues Discussed: Patient pending care home placement. Patient continues to have chronic memory deficits which limit his ability to care for himself. Patient aware that we are seeking care home placement and is agreeable. He denies acute AH/ VH/SI/HI. No violence/ aggression or agitation. Patient is at his baseline of functioning and psychiatrically stable for referral to care home placement. Medication Change: No Medical Record Reviewed: Yes Consults ordered or reviewed: Medicine consult Psychology consult: Pt is a 72 year old male admitted to [facility] and referred to the typewriter ribbon winder for evaluation. ON the DRS, pt scored an overall score of 104. P scored within normal limits on Attention, and Construction tasks. Pt's Memory, Initiation, and Conceptualization skills all fell in the deficient Range. pt was not oriented and had difficulty recalling governor, mayor, and current location. Overall 104 Attention 35 wnl Memory 12 deficient Initiation 29 deficient Construction 4 wnl conceptualization 24 Supervision of this patient recommended upon discharge. Mental Status Examination - Cognitive Function Orientation: Person, Place, Situation, Time Memory: Impaired Attention: Poor Concentration: Poor Association: WNL Fund of Knowledge: Poor Decription of patient's judgement and insights: Limited I/J due to chronic dementia - Mood Mood: Neutral - Affect Affect: Broad - Speech Speech: Appropriate - Formal Thought Process Formal Thought Process: No Impairment Psychotic Thoughts and Behaviors: Denies AH/VH/paranoia/delusions - Suicidal Ideation Suicidal Ideation: No - Homicidal Ideation Homicidal Ideation: No Goal/Treatment Plan - Goal/Treatment Plan Need for Continued Stay: Severe functional impairment Progress Toward Problem(s) and Goals/Treatment Plan: Dementia w/o behavioral disturbance; Depressive Disorder; Patient is psychiatrically stable for care home placement -Continue [facility] -Medicine consult -Psychology consult -Individual and group therapy -Psychoeducation -Disposition planning- pending care home placement. Estimated Date of D/C: 07/05/18
[2018-07-02] MEDS: Multivitamin With Minerals Tab PO SCH (08:24)
[2018-07-03] MEDS: Multivitamin With Minerals Tab PO SCH (08:32)
--- NOTE | 2018-07-03 08:48 | PCM.PYCHPN ---
Psychiatric Progress Note - Psychiatric Progress Note Patient seen today, length of contact: Patient evaluated, case discussed w/ team , chart reviewed Patient Chief Complaint: Inability to care for self Problems Identified/Issues Discussed: No new events overnight. Patient pending assisted placement. Patient continues to have chronic memory deficits which limit his ability to care for himself. Patient aware that we are seeking assisted placement and is agreeable. He denies acute AH/VH/SI/HI. No violence/ aggression or agitation. Patient is at his baseline of functioning and psychiatrically stable for referral to assisted placement. Medication Change: No Medical Record Reviewed: Yes Consults ordered or reviewed: Medicine consult Psychology consult: Pt is a 72 year old male admitted to [facility] and referred to the typewriters functional tester for evaluation. ON the DRS, pt scored an overall score of 104. P scored within normal limits on Attention, and Construction tasks. Pt's Memory, Initiation, and Conceptualization skills all fell in the deficient Range. pt was not oriented and had difficulty recalling governor, mayor, and current location. Overall 104 Attention 35 wnl Memory 12 deficient Initiation 29 deficient Construction 4 wnl conceptualization 24 Supervision of this patient recommended upon discharge. Mental Status Examination - Cognitive Function Orientation: Person, Place, Situation, Time Memory: Impaired Attention: Poor Concentration: Poor Association: WNL Fund of Knowledge: Poor Decription of patient's judgement and insights: Limited I/J due to chronic dementia - Mood Mood: Neutral - Affect Affect: Broad - Speech Speech: Appropriate - Formal Thought Process Formal Thought Process: No Impairment Psychotic Thoughts and Behaviors: Denies AH/VH/paranoia/delusions - Suicidal Ideation Suicidal Ideation: No - Homicidal Ideation Homicidal Ideation: No Goal/Treatment Plan - Goal/Treatment Plan Need for Continued Stay: Severe functional impairment Progress Toward Problem(s) and Goals/Treatment Plan: Dementia w/o behavioral disturbance; Depressive Disorder; Patient is psychiatrically stable for assisted placement -Continue [facility] -Medicine consult -Psychology consult -Individual and group therapy -Psychoeducation -Disposition planning- pending assisted placement. Estimated Date of D/C: 07/05/18
--- NOTE | 2018-07-03 13:35 | RAD ---
Date of service: 06/18/2018 PROCEDURE: Radiographs of the Lumbar Spine. HISTORY: falls back pain COMPARISON: Lumbar spine radiographs dated 02/19/2018. FINDINGS: BONES: Prior posterior transpedicular fusion from L4-S1 with anterior fusion of L4-5. Nonspecific space between the anterior fixation plate and the anterior aspect of the L4 vertebral body. Questionable grade 1 retrolisthesis of L3 on L4. No fracture. DISC SPACES: L5-S1 diskectomy. OTHER FINDINGS: None. IMPRESSION: Prior posterior fusion from L4-S1 and anterior fusion of L4-5. Nonspecific space between the anterior fixation plate and the anterior aspect of L4 vertebral body raise the possibility of component loosening. This is stable in appearance in comparison to the prior study. Questionable grade 1 retrolisthesis of L3 on L4, unchanged. No acute fracture.
--- NOTE | 2018-07-04 08:31 | PCM.PYCHPN ---
Psychiatric Progress Note - Psychiatric Progress Note Patient seen today, length of contact: Patient evaluated, case discussed w/ team , chart reviewed Patient Chief Complaint: Inability to care for self Problems Identified/Issues Discussed: No new events. Patient pending [facility] placement. Patient continues to have chronic memory deficits which limit his ability to care for himself. Patient aware that we are seeking [facility] placement and is agreeable. He denies acute AH/VH/SI/HI. No violence/ aggression or agitation. Patient is at his baseline of functioning and psychiatrically stable for referral to [facility] placement. Medication Change: No Medical Record Reviewed: Yes Consults ordered or reviewed: Medicine consult Psychology consult: Pt is a 72 year old male admitted to [facility] and referred to the caption writer for evaluation. ON the DRS, pt scored an overall score of 104. P scored within normal limits on Attention, and Construction tasks. Pt's Memory, Initiation, and Conceptualization skills all fell in the deficient Range. pt was not oriented and had difficulty recalling governor, mayor, and current location. Overall 104 Attention 35 wnl Memory 12 deficient Initiation 29 deficient Construction 4 wnl conceptualization 24 Supervision of this patient recommended upon discharge. Mental Status Examination - Cognitive Function Orientation: Person, Place, Situation, Time Memory: Impaired Attention: Poor Concentration: Poor Association: WNL Fund of Knowledge: Poor Decription of patient's judgement and insights: Limited I/J due to chronic dementia - Mood Mood: Neutral - Affect Affect: Broad - Speech Speech: Appropriate - Formal Thought Process Formal Thought Process: No Impairment Psychotic Thoughts and Behaviors: Denies AH/VH/paranoia/delusions - Suicidal Ideation Suicidal Ideation: No - Homicidal Ideation Homicidal Ideation: No Goal/Treatment Plan - Goal/Treatment Plan Need for Continued Stay: Severe functional impairment Progress Toward Problem(s) and Goals/Treatment Plan: Dementia w/o behavioral disturbance; Depressive Disorder; Patient is psychiatrically stable for [facility] placement -Continue [facility] -Medicine consult -Psychology consult -Individual and group therapy -Psychoeducation -Disposition planning- pending [facility] placement. Estimated Date of D/C: 07/05/18
[2018-07-04] MEDS: Multivitamin With Minerals Tab PO SCH (09:22)
[2018-07-05] MEDS: Multivitamin With Minerals Tab PO SCH (08:35)
--- NOTE | 2018-07-05 09:18 | PCM.PYCHPN ---
Psychiatric Progress Note - Psychiatric Progress Note Patient seen today, length of contact: Patient evaluated, case discussed w/ team , chart reviewed Patient Chief Complaint: Inability to care for self Problems Identified/Issues Discussed: No new events overnight. Patient pending [place] [facility]. Patient continues to have chronic memory deficits which limit his ability to care for himself. Patient aware that we are seeking [place] [facility] placement and is agreeable. He denies acute AH/VH/SI/HI. No violence/ aggression or agitation. Patient is at his baseline of functioning and psychiatrically stable for referral to [place] [facility]. Medication Change: No Medical Record Reviewed: Yes Consults ordered or reviewed: Medicine consult Psychology consult: Pt is a 72 year old male admitted to [facility] and referred to the film writer for evaluation. ON the DRS, pt scored an overall score of 104. P scored within normal limits on Attention, and Construction tasks. Pt's Memory, Initiation, and Conceptualization skills all fell in the deficient Range. pt was not oriented and had difficulty recalling governor, mayor, and current location. Overall 104 Attention 35 wnl Memory 12 deficient Initiation 29 deficient Construction 4 wnl conceptualization 24 Supervision of this patient recommended upon discharge. Mental Status Examination - Cognitive Function Orientation: Person, Place, Situation, Time Memory: Impaired Attention: Poor Concentration: Poor Association: WNL Fund of Knowledge: Poor Decription of patient's judgement and insights: Limited I/J due to chronic dementia - Mood Mood: Neutral - Affect Affect: Broad - Speech Speech: Appropriate - Formal Thought Process Formal Thought Process: No Impairment Psychotic Thoughts and Behaviors: Denies AH/VH/paranoia/delusions - Suicidal Ideation Suicidal Ideation: No - Homicidal Ideation Homicidal Ideation: No Goal/Treatment Plan - Goal/Treatment Plan Need for Continued Stay: Severe functional impairment Progress Toward Problem(s) and Goals/Treatment Plan: Dementia w/o behavioral disturbance; Depressive Disorder; Patient is psychiatrically stable for [place] [facility] -Continue [facility] -Medicine consult -Psychology consult -Individual and group therapy -Psychoeducation -Disposition planning- pending [place] [facility]. Estimated Date of D/C: 07/10/18
--- NOTE | 2018-07-05 13:34 | PCM.BM ---
Treatment Plan Problems - Problems identified on initial assessmt hopeless/helplessness Date Initiated: 06/19/18 Time Initiated: 18:14 Assessment reference: NA Status: Active Priority: 1 medication adherence Date Initiated: 06/19/18 Time Initiated: 18:15 Assessment reference: NA Status: Active Priority: 2 Treatment assets and liabiliti Patient Assests: cooperative, ADL independent, physically healthy, negotiates basic needs, cognitively intact Patient Liabilities: poor support system, medical problems, other (homeless) - Milieu Protocol Maintain good personal hygiene: every shift Encourage regular showers, every shift Remind patient to perform daily oral care, every shift Assist patient to perform ADL's Maintain personal safety: every shift Educate patient to report safety concerns to staff, every shift Monitor environment for contraband/sharps Medication safety: Monitor for expected outcome, potential side effects: every shift, Assess barriers to learning: every shift, Assess readiness for medication education: every shift Milieu Narrative: Dementia w/o behavioral disturbance; Depressive Disorder; Patient is psychiatrically stable for residential placement -Continue [facility] -Medicine consult -Psychology consult -Individual and group therapy -Psychoeducation -Disposition planning- pending residential placement. Family Contact Family involvement: No known Family/SO - Outside Agency [facility] Care involvment: Not involved - Goals for Treatment Patient goals for treatment: "My pain to go away." Discharge/Continuing Care - Education Needs Education Needs: Family Medication, Family Diagnosis/Disease Process, Family Coping Skills, Family Placement options, Family Community resources, Family Health Practices/Safety, Family Personal Hygiene/Grooming, Family Aftercare Safety Plan - Discharge Discharge Criteria: Tolerates medication w/o severe side effects, Free of Suicidal thoughts, Ability to care for self, Reduction of target symptoms Discharge to:: Longterm - Additional Comments 06/21/18 14:58 Pt seen and discussed in team meeting. Reason for hospitalization reviewed and discussed. Pt reported he was admitted due to "too much pain." Pt denied symptoms of depression and anxiety. Pt denied having memory issues stating "perfect." [employer] Developer reviewed and discussed neuropscyh evaluation and results. Pt verbalize that he disagrees with the final results of the testing. [employer] Developer inquired about suicidal statement that pt mentioned prior to hospitalization stating "I rather ." Pt reported that he rather than to live with the pain. Pt is homeless and unable to care for himself in the community. Pt's social and emotional issues reviewed and discussed. Tx plan reviewed and discussed. [employer] C[employer] Developer reviewed NH placement if he meets criteria and pt verbalized agreement. SW to continue to follow case. - Treatment Team Participation Patient/Family/SO Statement: Dementia w/o behavioral disturbance; Depressive Disorder; Patient is psychiatrically stable for residential placement -Continue [facility] -Medicine consult -Psychology consult -Individual and group therapy -Psychoeducation -Disposition planning- pending residential placement. Discussed with Family/SO: No Was Patient/Family/SO present at Treatment Team Meeting: Yes Treatment Plan Review Patient participation: Yes Family/SO/Caregiver participation: No Additional Comments: Pt seen and discussed in team meeting. Pt's progress and bx on the unit reviewed. Pt reported feeling "a little better." Pt reported feeling better in the sense that he can walk better.Pt denied active SI and HI. Pt stated "It's up to God." Pt's medications reviewed and discussed. Tx plan reviewed and pt verbalized agreement. Pt informed that clinical information was faxed to [facility] and that response is pending. SW to continue to follow case. Pt reported having no questions at this time. - Problem hopeless/helplessness Date Initiated: 06/19/18 Time Initiated: 18:14 Progress toward outcomes: improved medication adherence Date Initiated: 06/19/18 Time Initiated: 18:15 Progress toward outcomes: resolved (Pt is compliant with prescribed medication) - Discharge / Continuing Care Discharge to:: Longterm Behavioral Health Services: Other (Medication management) Health Needs: Follow up care/test, Doctor appointments, Special equipment, Medications/Rx, Educational, Recreational/Social
[2018-07-06] MEDS: Multivitamin With Minerals Tab PO SCH (09:06)
--- NOTE | 2018-07-06 16:30 | PCM.PYCHPN ---
Psychiatric Progress Note - Psychiatric Progress Note Patient seen today, length of contact: Patient evaluated, case discussed w/ team , chart reviewed Patient Chief Complaint: seen in room, admits to being forgetful, staff report pt requires prompting with adls/medications. requires care total Problems Identified/Issues Discussed: alteration in cognition alteration in self care Medical Problems: per chart Diagnostic Results: per psychiatry per medicine per nursing per social work per recreational work Medication Change: No Medical Record Reviewed: Yes Consults ordered or reviewed: pt seen by hospitalist Mental Status Examination - Cognitive Function Orientation: Person, Place, Situation, Time Memory: Impaired Attention: Poor Concentration: Poor Association: WNL Fund of Knowledge: Poor Decription of patient's judgement and insights: impaired - Mood Mood: Neutral - Affect Affect: Broad - Speech Speech: Appropriate - Formal Thought Process Formal Thought Process: No Impairment - Suicidal Ideation Suicidal Ideation: No - Homicidal Ideation Homicidal Ideation: No Goal/Treatment Plan - Goal/Treatment Plan Need for Continued Stay: Severe functional impairment Progress Toward Problem(s) and Goals/Treatment Plan: iinpt milieu adjust meds per status requires total care discharge planning in progress pending ltc placement Estimated Date of D/C: 07/10/18 - Smoking Cessation Smoking Cessation Initiated: No Reason for not providing: pt defers
[2018-07-07] MEDS: Multivitamin With Minerals Tab PO SCH (08:21)
--- NOTE | 2018-07-07 12:52 | PCM.PYCHPN ---
Psychiatric Progress Note - Psychiatric Progress Note Patient seen today, length of contact: Patient evaluated, case discussed w/ team , chart reviewed Patient Chief Complaint: seen in room, admits to being forgetful, staff report pt requires prompting with adls/medications. requires care total Problems Identified/Issues Discussed: alteration in cognition alteration in self care Medical Problems: per chart Diagnostic Results: per psychiatry per medicine per nursing per social work per recreational work DSM 5 Symptoms Update: alteration in cognition mood Medication Change: No Medical Record Reviewed: Yes Consults ordered or reviewed: pt seen by hospitalist Mental Status Examination - Cognitive Function Orientation: Person, Place, Situation, Time Memory: Impaired Attention: Poor Concentration: Poor Association: WNL Fund of Knowledge: Poor Decription of patient's judgement and insights: impaired - Mood Mood: Neutral - Affect Affect: Broad - Speech Speech: Appropriate - Formal Thought Process Formal Thought Process: No Impairment - Suicidal Ideation Suicidal Ideation: No - Homicidal Ideation Homicidal Ideation: No Goal/Treatment Plan - Goal/Treatment Plan Need for Continued Stay: Severe functional impairment Progress Toward Problem(s) and Goals/Treatment Plan: iinpt milieu adjust meds per status vital signs and clinical observation per status and per protocol requires total care discharge planning in progress pending ltc placement Estimated Date of D/C: 07/10/18 - Smoking Cessation Smoking Cessation Initiated: No Reason for not providing: pt defers
[2018-07-08 06:49] LABS: PROTHROMBIN TIME 11.6 Seconds (9.8-13.1)
[2018-07-08 06:52] LABS: PARTIAL THROMBOPLASTIN TIME 33.5 Seconds (25.6-37.1)
[2018-07-08 06:56] LABS: HEMOGLOBIN 13.4 g/dL (12.0-18.0); MEAN CELL VOLUME 92.7 fl (80.0-94.0); MEAN CORPUSCULAR HEMOGLOBIN 30.9 pg (27.0-31.0); MEAN CORPUSCULAR HGB CONC 33.3 g/dL (33.0-37.0); RBC 4.33 Mil/uL (4.40-5.90); RED CELL DISTRIBUTION WIDTH 13.8 % (11.5-14.5); WHITE BLOOD COUNT 7.7 K/uL (4.8-10.8)
[2018-07-08 07:12] LABS: BLOOD UREA NITROGEN 14 mg/dl (9-20); CALCIUM 9.5 mg/dL (8.4-10.2); GFR NON-AFRICAN AMERICAN > 60
--- NOTE | 2018-07-08 08:39 | PCM.PYCHPN ---
Psychiatric Progress Note - Psychiatric Progress Note Patient seen today, length of contact: Patient evaluated, case discussed w/ team , chart reviewed Patient Chief Complaint: Inability to care for self Problems Identified/Issues Discussed: No new events over the weekend. Patient pending [facility] placement. Patient continues to have chronic memory deficits which limit his ability to care for himself. Patient aware that we are seeking m[facility] placement and is agreeable. He denies acute AH/VH/SI/HI. No violence/ aggression or agitation. Patient is at his baseline of functioning and psychiatrically stable for referral to mcc placement. Medication Change: No Medical Record Reviewed: Yes Consults ordered or reviewed: Medicine consult Psychology consult: Pt is a 72 year old male admitted to [facility] and referred to the internal communications writer for evaluation. ON the DRS, pt scored an overall score of 104. P scored within normal limits on Attention, and Construction tasks. Pt's Memory, Initiation, and Conceptualization skills all fell in the deficient Range. pt was not oriented and had difficulty recalling governor, mayor, and current location. Overall 104 Attention 35 wnl Memory 12 deficient Initiation 29 deficient Construction 4 wnl conceptualization 24 Supervision of this patient recommended upon discharge. Mental Status Examination - Cognitive Function Orientation: Person, Place, Situation, Time Memory: Impaired Attention: Poor Concentration: Poor Association: WNL Fund of Knowledge: Poor Decription of patient's judgement and insights: Limited I/J due to dementia - Mood Mood: Neutral - Affect Affect: Broad - Speech Speech: Appropriate - Formal Thought Process Formal Thought Process: No Impairment Psychotic Thoughts and Behaviors: No AH/VH/paranoia/delusions - Suicidal Ideation Suicidal Ideation: No - Homicidal Ideation Homicidal Ideation: No Goal/Treatment Plan - Goal/Treatment Plan Need for Continued Stay: Severe functional impairment Progress Toward Problem(s) and Goals/Treatment Plan: Dementia w/o behavioral disturbance; Depressive Disorder; Patient is psychiatrically stable for [facility] placement -Continue [facility] -Medicine consult -Psychology consult -Individual and group therapy -Psychoeducation -Disposition planning- pending [facility] placement. Estimated Date of D/C: 07/12/18
[2018-07-08] MEDS: Multivitamin With Minerals Tab PO SCH (08:42)
[2018-07-09] MEDS: Multivitamin With Minerals Tab PO SCH (08:21)
--- NOTE | 2018-07-09 08:31 | PCM.PYCHPN ---
Psychiatric Progress Note - Psychiatric Progress Note Patient seen today, length of contact: Patient evaluated, case discussed w/ team , chart reviewed Patient Chief Complaint: Inability to care for self Problems Identified/Issues Discussed: No new events overnight. Patient pending alf placement. Patient continues to have chronic memory deficits which limit his ability to care for himself. Patient aware that we are seeking alf placement and is agreeable. He denies acute AH/VH/SI/HI. No violence/ aggression or agitation. Patient is at his baseline of functioning and psychiatrically stable for referral to alf placement. Medication Change: No Medical Record Reviewed: Yes Mental Status Examination - Cognitive Function Orientation: Person, Place, Situation, Time Memory: Impaired Attention: Poor Concentration: Poor Association: WNL Fund of Knowledge: Poor Decription of patient's judgement and insights: Limited I/J due to dementia - Mood Mood: Neutral - Affect Affect: Broad - Speech Speech: Appropriate - Formal Thought Process Formal Thought Process: No Impairment Psychotic Thoughts and Behaviors: No AH/VH/paranoia/delusions - Suicidal Ideation Suicidal Ideation: No - Homicidal Ideation Homicidal Ideation: No Goal/Treatment Plan - Goal/Treatment Plan Need for Continued Stay: Severe functional impairment Progress Toward Problem(s) and Goals/Treatment Plan: Dementia w/o behavioral disturbance; Depressive Disorder; Patient is psychiatrically stable for alf placement -Continue [facility] -Medicine consult -Psychology consult -Individual and group therapy -Psychoeducation -Disposition planning- pending alf placement. Estimated Date of D/C: 07/12/18
--- NOTE | 2018-07-10 08:09 | PCM.PYCHPN ---
Psychiatric Progress Note - Psychiatric Progress Note Patient seen today, length of contact: Patient evaluated, case discussed w/ team , chart reviewed Patient Chief Complaint: Inability to care for self Problems Identified/Issues Discussed: No new events. Patient pending custodial placement. Patient continues to have chronic memory deficits which limit his ability to care for himself. Patient aware that we are seeking custodial placement and is agreeable. He denies acute AH/VH/SI/HI. No violence/ aggression or agitation. Patient is at his baseline of functioning and psychiatrically stable for referral to custodial placement. Medication Change: No Medical Record Reviewed: Yes Consults ordered or reviewed: Medicine consult Psychology consult: Pt is a 72 year old male admitted to [facility] and referred to the speech writer for evaluation. ON the DRS, pt scored an overall score of 104. P scored within normal limits on Attention, and Construction tasks. Pt's Memory, Initiation, and Conceptualization skills all fell in the deficient Range. pt was not oriented and had difficulty recalling governor, mayor, and current location. Overall 104 Attention 35 wnl Memory 12 deficient Initiation 29 deficient Construction 4 wnl conceptualization 24 Supervision of this patient recommended upon discharge. Mental Status Examination - Cognitive Function Orientation: Person, Place, Situation, Time Memory: Impaired Attention: Poor Concentration: Poor Association: WNL Fund of Knowledge: Poor Decription of patient's judgement and insights: Limited I/J due to dementia - Mood Mood: Neutral - Affect Affect: Broad - Speech Speech: Appropriate - Formal Thought Process Formal Thought Process: No Impairment Psychotic Thoughts and Behaviors: No AH/VH/paranoia/delusions - Suicidal Ideation Suicidal Ideation: No - Homicidal Ideation Homicidal Ideation: No Goal/Treatment Plan - Goal/Treatment Plan Need for Continued Stay: Severe functional impairment Progress Toward Problem(s) and Goals/Treatment Plan: Dementia w/o behavioral disturbance; Depressive Disorder; Patient is psychiatrically stable for custodial placement -Continue [facility] -Medicine consult -Psychology consult -Individual and group therapy -Psychoeducation -Disposition planning- pending custodial placement. Estimated Date of D/C: 07/12/18
[2018-07-10] MEDS: Multivitamin With Minerals Tab PO SCH (08:31)
--- NOTE | 2018-07-11 08:00 | PCM.PYCHPN ---
Psychiatric Progress Note - Psychiatric Progress Note Patient seen today, length of contact: Patient evaluated, case discussed w/ team , chart reviewed Patient Chief Complaint: Inability to care for self Problems Identified/Issues Discussed: No new events overnight. Patient pending alf placement. Patient continues to have chronic memory deficits which limit his ability to care for himself. Patient aware that we are seeking alf placement and is agreeable. He denies acute AH/VH/SI/HI. No violence/ aggression or agitation. Patient is at his baseline of functioning and psychiatrically stable for referral to alf placement. Medication Change: No Medical Record Reviewed: Yes Consults ordered or reviewed: Medicine consult Psychology consult: Pt is a 72 year old male admitted to [facility] and referred to the play writer for evaluation. ON the DRS, pt scored an overall score of 104. P scored within normal limits on Attention, and Construction tasks. Pt's Memory, Initiation, and Conceptualization skills all fell in the deficient Range. pt was not oriented and had difficulty recalling governor, mayor, and current location. Overall 104 Attention 35 wnl Memory 12 deficient Initiation 29 deficient Construction 4 wnl conceptualization 24 Supervision of this patient recommended upon discharge. Mental Status Examination - Cognitive Function Orientation: Person, Place, Situation, Time Memory: Impaired Attention: Poor Concentration: Poor Association: WNL Fund of Knowledge: Poor Decription of patient's judgement and insights: Limited I/J due to dementia - Mood Mood: Neutral - Affect Affect: Broad - Speech Speech: Appropriate - Formal Thought Process Formal Thought Process: No Impairment Psychotic Thoughts and Behaviors: No AH/VH/paranoia/delusions - Suicidal Ideation Suicidal Ideation: No - Homicidal Ideation Homicidal Ideation: No Goal/Treatment Plan - Goal/Treatment Plan Need for Continued Stay: Severe functional impairment Progress Toward Problem(s) and Goals/Treatment Plan: Dementia w/o behavioral disturbance; Depressive Disorder; Patient is psychiatrically stable for alf placement -Continue [facility] -Medicine consult -Psychology consult -Individual and group therapy -Psychoeducation -Disposition planning- pending alf placement. Estimated Date of D/C: 07/15/18
[2018-07-11] MEDS: Multivitamin With Minerals Tab PO SCH (08:36)
--- NOTE | 2018-07-12 08:18 | PCM.PYCHPN ---
Psychiatric Progress Note - Psychiatric Progress Note Patient seen today, length of contact: Patient evaluated, case discussed w/ team , chart reviewed Patient Chief Complaint: Inability to care for self Problems Identified/Issues Discussed: No new events. Patient pending skilled nursing placement. Patient continues to have chronic memory deficits which limit his ability to care for himself. Patient aware that we are seeking skilled nursing placement and is agreeable. He denies acute AH/VH/SI/HI. No violence/ aggression or agitation. Patient is at his baseline of functioning and psychiatrically stable for referral to skilled nursing placement. Medication Change: No Medical Record Reviewed: Yes Consults ordered or reviewed: Medicine consult Psychology consult: Pt is a 72 year old male admitted to [facility] and referred to the job specification writer for evaluation. ON the DRS, pt scored an overall score of 104. P scored within normal limits on Attention, and Construction tasks. Pt's Memory, Initiation, and Conceptualization skills all fell in the deficient Range. pt was not oriented and had difficulty recalling governor, mayor, and current location. Overall 104 Attention 35 wnl Memory 12 deficient Initiation 29 deficient Construction 4 wnl conceptualization 24 Supervision of this patient recommended upon discharge. Mental Status Examination - Cognitive Function Orientation: Person, Place, Situation, Time Memory: Impaired Attention: Poor Concentration: Poor Association: WNL Fund of Knowledge: Poor Decription of patient's judgement and insights: Limited I/J due to dementia - Mood Mood: Neutral - Affect Affect: Broad - Speech Speech: Appropriate - Formal Thought Process Formal Thought Process: No Impairment Psychotic Thoughts and Behaviors: No AH/VH/paranoia/delusions - Suicidal Ideation Suicidal Ideation: No - Homicidal Ideation Homicidal Ideation: No Goal/Treatment Plan - Goal/Treatment Plan Need for Continued Stay: Severe functional impairment Progress Toward Problem(s) and Goals/Treatment Plan: Dementia w/o behavioral disturbance; Depressive Disorder; Patient is psychiatrically stable for skilled nursing placement -Continue [facility] -Medicine consult -Psychology consult -Individual and group therapy -Psychoeducation -Disposition planning- pending skilled nursing placement. Estimated Date of D/C: 07/17/18
[2018-07-12] MEDS: Multivitamin With Minerals Tab PO SCH (08:47)
[2018-07-12] MEDS: Bacitracin/Neomycin/Polymyxin OPHT OINT OU SCH (23:40)
[2018-07-13] MEDS: Bacitracin/Neomycin/Polymyxin OPHT OINT OU SCH ×6 (01:00→21:34)
[2018-07-13] MEDS: Multivitamin With Minerals Tab PO SCH (08:19)
--- NOTE | 2018-07-13 09:49 | PCM.PYCHPN ---
Psychiatric Progress Note - Psychiatric Progress Note Patient seen today, length of contact: Patient evaluated, case discussed w/ team , chart reviewed Patient Chief Complaint: Inability to care for self Problems Identified/Issues Discussed: No new events overnight. Patient pending group home placement. Patient continues to have chronic memory deficits which limit his ability to care for himself. Patient aware that we are seeking group home placement and is agreeable. He denies acute AH/VH/SI/HI. No violence/ aggression or agitation. Patient is at his baseline of functioning and psychiatrically stable for referral to group home placement. Medication Change: No Medical Record Reviewed: Yes Consults ordered or reviewed: Medicine consult Psychology consult: Pt is a 72 year old male admitted to [facility] and referred to the fiction writer for evaluation. ON the DRS, pt scored an overall score of 104. P scored within normal limits on Attention, and Construction tasks. Pt's Memory, Initiation, and Conceptualization skills all fell in the deficient Range. pt was not oriented and had difficulty recalling governor, mayor, and current location. Overall 104 Attention 35 wnl Memory 12 deficient Initiation 29 deficient Construction 4 wnl conceptualization 24 Supervision of this patient recommended upon discharge. Mental Status Examination - Cognitive Function Orientation: Person, Place, Situation, Time Memory: Impaired Attention: Poor Concentration: Poor Association: WNL Fund of Knowledge: Poor Decription of patient's judgement and insights: Limited I/J due to dementia - Mood Mood: Neutral - Affect Affect: Broad - Speech Speech: Appropriate - Formal Thought Process Formal Thought Process: No Impairment Psychotic Thoughts and Behaviors: No AH/VH/paranoia/delusions - Suicidal Ideation Suicidal Ideation: No - Homicidal Ideation Homicidal Ideation: No Goal/Treatment Plan - Goal/Treatment Plan Need for Continued Stay: Severe functional impairment Progress Toward Problem(s) and Goals/Treatment Plan: Dementia w/o behavioral disturbance; Depressive Disorder; Patient is psychiatrically stable for group home placement -Continue [facility] -Medicine consult -Psychology consult -Individual and group therapy -Psychoeducation -Disposition planning- pending group home placement. Estimated Date of D/C: 07/17/18
[2018-07-14] MEDS: Bacitracin/Neomycin/Polymyxin OPHT OINT OU SCH ×6 (01:58→21:04)
--- NOTE | 2018-07-14 07:58 | PCM.PYCHPN ---
Psychiatric Progress Note - Psychiatric Progress Note Patient seen today, length of contact: Patient evaluated, case discussed w/ team , chart reviewed Patient Chief Complaint: Inability to care for self Problems Identified/Issues Discussed: No new events. Patient pending [facility] placement. Patient continues to have chronic memory deficits which limit his ability to care for himself. Patient aware that we are seeking [facility] placement and is agreeable. He denies acute AH/VH/SI/HI. No violence/ aggression or agitation. Patient is at his baseline of functioning and psychiatrically stable for referral to [facility] placement. Medication Change: No Medical Record Reviewed: Yes Consults ordered or reviewed: Medicine consult Psychology consult: Pt is a 72 year old male admitted to [facility] and referred to the policy writer sales for evaluation. ON the DRS, pt scored an overall score of 104. P scored within normal limits on Attention, and Construction tasks. Pt's Memory, Initiation, and Conceptualization skills all fell in the deficient Range. pt was not oriented and had difficulty recalling governor, mayor, and current location. Overall 104 Attention 35 wnl Memory 12 deficient Initiation 29 deficient Construction 4 wnl conceptualization 24 Supervision of this patient recommended upon discharge. Mental Status Examination - Cognitive Function Orientation: Person, Place, Situation, Time Memory: Impaired Attention: Poor Concentration: Poor Association: WNL Fund of Knowledge: Poor Decription of patient's judgement and insights: Limited I/J due to dementia - Mood Mood: Neutral - Affect Affect: Broad - Speech Speech: Appropriate - Formal Thought Process Formal Thought Process: No Impairment Psychotic Thoughts and Behaviors: No AH/VH/paranoia/delusions - Suicidal Ideation Suicidal Ideation: No - Homicidal Ideation Homicidal Ideation: No Goal/Treatment Plan - Goal/Treatment Plan Need for Continued Stay: Severe functional impairment Progress Toward Problem(s) and Goals/Treatment Plan: Dementia w/o behavioral disturbance; Depressive Disorder; Patient is psychiatrically stable for [facility] placement -Continue [facility] -Medicine consult -Psychology consult -Individual and group therapy -Psychoeducation -Disposition planning- pending [facility] placement. Estimated Date of D/C: 07/17/18
[2018-07-14] MEDS: Multivitamin With Minerals Tab PO SCH (08:34)
[2018-07-15] MEDS: Bacitracin/Neomycin/Polymyxin OPHT OINT OU SCH ×6 (01:10→21:16)
--- NOTE | 2018-07-15 08:15 | PCM.PYCHPN ---
Psychiatric Progress Note - Psychiatric Progress Note Patient seen today, length of contact: Patient evaluated, case discussed w/ team , chart reviewed Patient Chief Complaint: Inability to care for self Problems Identified/Issues Discussed: No new events over the weekend. Patient pending senior care placement. Patient continues to have chronic memory deficits which limit his ability to care for himself. Patient aware that we are seeking senior care placement and is agreeable. He denies acute AH/VH/SI/HI. No violence/ aggression or agitation. Patient is at his baseline of functioning and psychiatrically stable for referral to senior care placement. Medication Change: No Medical Record Reviewed: Yes Mental Status Examination - Cognitive Function Orientation: Person, Place, Situation, Time Memory: Impaired Attention: Poor Concentration: Poor Association: WNL Fund of Knowledge: Poor Decription of patient's judgement and insights: Limited I/J due to dementia - Mood Mood: Neutral - Affect Affect: Broad - Speech Speech: Appropriate - Formal Thought Process Formal Thought Process: No Impairment Psychotic Thoughts and Behaviors: No AH/VH/paranoia/delusions - Suicidal Ideation Suicidal Ideation: No - Homicidal Ideation Homicidal Ideation: No Goal/Treatment Plan - Goal/Treatment Plan Need for Continued Stay: Severe functional impairment Progress Toward Problem(s) and Goals/Treatment Plan: Dementia w/o behavioral disturbance; Depressive Disorder; Patient is psychiatrically stable for senior care placement -Continue Namenda -Medicine consult -Psychology consult -Individual and group therapy -Psychoeducation -Disposition planning- pending senior care placement. Estimated Date of D/C: 07/19/18
[2018-07-15] MEDS: Multivitamin With Minerals Tab PO SCH (08:54)
--- NOTE | 2018-07-15 12:18 | PCM.BM ---
Treatment Plan Problems - Problems identified on initial assessmt hopeless/helplessness Date Initiated: 06/19/18 Time Initiated: 18:14 Assessment reference: NA Status: Active Priority: 1 medication adherence Date Initiated: 06/19/18 Time Initiated: 18:15 Assessment reference: NA Status: Active Priority: 2 Treatment assets and liabiliti Patient Assests: cooperative, ADL independent, physically healthy, negotiates basic needs, cognitively intact Patient Liabilities: poor support system, medical problems, other (homeless) - Milieu Protocol Maintain good personal hygiene: every shift Encourage regular showers, every shift Remind patient to perform daily oral care, every shift Assist patient to perform ADL's Maintain personal safety: every shift Educate patient to report safety concerns to staff, every shift Monitor environment for contraband/sharps Medication safety: Monitor for expected outcome, potential side effects: every shift, Assess barriers to learning: every shift, Assess readiness for medication education: every shift Milieu Narrative: Dementia w/o behavioral disturbance; Depressive Disorder; Patient is psychiatrically stable for longterm placement -Continue Namenda -Medicine consult -Psychology consult -Individual and group therapy -Psychoeducation -Disposition planning- pending longterm placement. Family Contact Family involvement: No known Family/SO - Outside Agency [facility] Care involvment: Not involved - Goals for Treatment Patient goals for treatment: "My pain to go away." Discharge/Continuing Care - Education Needs Education Needs: Family Medication, Family Diagnosis/Disease Process, Family Coping Skills, Family Placement options, Family Community resources, Family Health Practices/Safety, Family Personal Hygiene/Grooming, Family Aftercare Safety Plan - Discharge Discharge Criteria: Tolerates medication w/o severe side effects, Free of Suicidal thoughts, Ability to care for self, Reduction of target symptoms Discharge to:: [facility] - Additional Comments 06/21/18 14:58 Pt seen and discussed in team meeting. Reason for hospitalization reviewed and discussed. Pt reported he was admitted due to "too much pain." Pt denied symptoms of depression and anxiety. Pt denied having memory issues stating "perfect." Sliver Lapper reviewed and discussed neuropscyh evaluation and results. Pt verbalize that he disagrees with the final results of the testing. Sliver Lapper inquired about suicidal statement that pt mentioned prior to hospitalization stating "I rather ." Pt reported that he rather than to live with the pain. Pt is homeless and unable to care for himself in the community. Pt's social and emotional issues reviewed and discussed. Tx plan reviewed and discussed. Sliver Lapper reviewed NH placement if he meets criteria and pt verbalized agreement. SW to continue to follow case. - Treatment Team Participation Patient/Family/SO Statement: Dementia w/o behavioral disturbance; Depressive Disorder; Patient is psychiatrically stable for longterm placement -Continue Namenda -Medicine consult -Psychology consult -Individual and group therapy -Psychoeducation -Disposition planning- pending longterm placement. Discussed with Family/SO: No Was Patient/Family/SO present at Treatment Team Meeting: Yes Treatment Plan Review Patient participation: Yes Family/SO/Caregiver participation: No Additional Comments: LATE ENTRY FROM 07/12/2018: Pt seen and discussed in team meeting. Pt's progress reviewed and discussed. Pt reported feeling "good." Pt reported having no concerns and/or questions for the team. Pt reported less frequent leg pain. t's sleep is fair. Pt's appetite is fair. Pt's medication reviewed and discussed. Pt's tx plan reviewed and discussed. Pt is pending transfer to accepting facility, [facility] for chcf placement. Pt made aware that [facility] is pending bank statements from [employer]. Tx plan reviewed ad discussed; pt verbalized agreement. SW to continue to follow case. - Problem hopeless/helplessness Date Initiated: 06/19/18 Time Initiated: 18:14 Progress toward outcomes: improved medication adherence Date Initiated: 06/19/18 Time Initiated: 18:15 Progress toward outcomes: resolved (Pt is compliant with prescribed medication) - Discharge / Continuing Care Discharge to:: [facility] Behavioral Health Services: Other (Medication management) Health Needs: Follow up care/test, Doctor appointments, Special equipment, Nutritional, Medications/Rx, Educational
[2018-07-16] MEDS: Bacitracin/Neomycin/Polymyxin OPHT OINT OU SCH ×5 (01:42→21:08)
--- NOTE | 2018-07-16 08:34 | PCM.PYCHPN ---
Psychiatric Progress Note - Psychiatric Progress Note Patient seen today, length of contact: Patient evaluated, case discussed w/ team, chart reviewed Patient Chief Complaint: Inability to care for self Problems Identified/Issues Discussed: No new events. Patient pending chcf placement. Patient continues to have chronic memory deficits which limit his ability to care for himself. Patient aware that we are seeking chcf placement and is agreeable. He denies acute AH/VH/SI/HI. No violence/ aggression or agitation. Patient is at his baseline of functioning and psychiatrically stable for referral to chcf placement. Medication Change: No Medical Record Reviewed: Yes Consults ordered or reviewed: Medicine consult Psychology consult: Pt is a 72 year old male admitted to [facility] and referred to the narrative writer for evaluation. ON the DRS, pt scored an overall score of 104. P scored within normal limits on Attention, and Construction tasks. Pt's Memory, Initiation, and Conceptualization skills all fell in the deficient Range. pt was not oriented and had difficulty recalling governor, mayor, and current location. Overall 104 Attention 35 wnl Memory 12 deficient Initiation 29 deficient Construction 4 wnl conceptualization 24 Supervision of this patient recommended upon discharge. Mental Status Examination - Cognitive Function Orientation: Person, Place, Situation, Time Memory: Impaired Attention: Poor Concentration: Poor Association: WNL Fund of Knowledge: Poor Decription of patient's judgement and insights: Limited I/J due to dementia - Mood Mood: Neutral - Affect Affect: Broad - Speech Speech: Appropriate - Formal Thought Process Formal Thought Process: No Impairment Psychotic Thoughts and Behaviors: No AH/VH/paranoia/delusions - Suicidal Ideation Suicidal Ideation: No - Homicidal Ideation Homicidal Ideation: No Goal/Treatment Plan - Goal/Treatment Plan Need for Continued Stay: Severe functional impairment Progress Toward Problem(s) and Goals/Treatment Plan: Dementia w/o behavioral disturbance; Depressive Disorder; Patient is psychiatrically stable for chcf placement -Continue Namenda -Medicine consult -Psychology consult -Individual and group therapy -Psychoeducation -Disposition planning- pending chcf placement. Estimated Date of D/C: 07/19/18
[2018-07-16] MEDS: Multivitamin With Minerals Tab PO SCH (14:19)
[2018-07-17] MEDS: Bacitracin/Neomycin/Polymyxin OPHT OINT OU SCH ×6 (01:18→21:09)
--- NOTE | 2018-07-17 08:08 | PCM.PYCHPN ---
Psychiatric Progress Note - Psychiatric Progress Note Patient seen today, length of contact: Patient evaluated, case discussed w/ team, chart reviewed Patient Chief Complaint: Inability to care for self Problems Identified/Issues Discussed: No new events overnight. Patient pending longterm placement. Patient continues to have chronic memory deficits which limit his ability to care for himself. Patient aware that we are seeking longterm placement and is agreeable. He denies acute AH/VH/SI/HI. No violence/ aggression or agitation. Patient is at his baseline of functioning and psychiatrically stable for referral to longterm placement. Medication Change: No Medical Record Reviewed: Yes Mental Status Examination - Cognitive Function Orientation: Person, Place, Situation, Time Memory: Impaired Attention: Poor Concentration: Poor Association: WNL Fund of Knowledge: Poor Decription of patient's judgement and insights: Limited I/J due to dementia - Mood Mood: Neutral - Affect Affect: Broad - Speech Speech: Appropriate - Formal Thought Process Formal Thought Process: No Impairment Psychotic Thoughts and Behaviors: No AH/VH/paranoia/delusions - Suicidal Ideation Suicidal Ideation: No - Homicidal Ideation Homicidal Ideation: No Goal/Treatment Plan - Goal/Treatment Plan Need for Continued Stay: Severe functional impairment Progress Toward Problem(s) and Goals/Treatment Plan: Dementia w/o behavioral disturbance; Depressive Disorder; Patient is psychiatrically stable for longterm placement -Continue Namenda -Medicine consult -Psychology consult -Individual and group therapy -Psychoeducation -Disposition planning- pending longterm placement. Estimated Date of D/C: 07/19/18
[2018-07-17] MEDS: Multivitamin With Minerals Tab PO SCH (09:20)
[2018-07-18] MEDS: Bacitracin/Neomycin/Polymyxin OPHT OINT OU SCH ×6 (01:45→21:29)
--- NOTE | 2018-07-18 08:22 | PCM.PYCHPN ---
Psychiatric Progress Note - Psychiatric Progress Note Patient seen today, length of contact: Patient evaluated, case discussed w/ team, chart reviewed Patient Chief Complaint: Inability to care for self Problems Identified/Issues Discussed: No new events. Patient [place] [facility]. Patient continues to have chronic memory deficits which limit his ability to care for himself. Patient aware that we are seeking [place] [facility] placement and is agreeable. He denies acute AH/VH/SI/HI. No violence/ aggression or agitation. Patient is at his baseline of functioning and psychiatrically stable for referral to [place] [facility] [place]. Medication Change: No Medical Record Reviewed: Yes Consults ordered or reviewed: Medicine consult Psychology consult: Pt is a 72 year old male admitted to [facility] and referred to the fiction and nonfiction writer prose for evaluation. ON the DRS, pt scored an overall score of 104. P scored within normal limits on Attention, and Construction tasks. Pt's Memory, Initiation, and Conceptualization skills all fell in the deficient Range. pt was not oriented and had difficulty recalling governor, mayor, and current location. Overall 104 Attention 35 wnl Memory 12 deficient Initiation 29 deficient Construction 4 wnl conceptualization 24 Supervision of this patient recommended upon discharge. Mental Status Examination - Cognitive Function Orientation: Person, Place, Situation, Time Memory: Impaired Attention: Poor Concentration: Poor Association: WNL Fund of Knowledge: Poor Decription of patient's judgement and insights: Limited I/J due to dementia - Mood Mood: Neutral - Affect Affect: Broad - Speech Speech: Appropriate - Formal Thought Process Formal Thought Process: No Impairment Psychotic Thoughts and Behaviors: No AH/VH/paranoia/delusions - Suicidal Ideation Suicidal Ideation: No - Homicidal Ideation Homicidal Ideation: No Goal/Treatment Plan - Goal/Treatment Plan Need for Continued Stay: Severe functional impairment Progress Toward Problem(s) and Goals/Treatment Plan: Dementia w/o behavioral disturbance; Depressive Disorder; Patient is psychiatrically stable for [place] [facility] placement -Continue Namenda -Medicine consult -Psychology consult -Individual and group therapy -Psychoeducation -Disposition planning- pending [place] [facility]. Estimated Date of D/C: 07/19/18
[2018-07-18] MEDS: Multivitamin With Minerals Tab PO SCH (08:48)
[2018-07-19] MEDS: Bacitracin/Neomycin/Polymyxin OPHT OINT OU SCH ×4 (01:30→13:49)
[2018-07-19 06:18] VITALS: BP 102/62; PULSE 78; RESP 19; TEMP 97.1
--- NOTE | 2018-07-19 08:42 | PCM.PYCHPN ---
Psychiatric Progress Note - Psychiatric Progress Note Patient seen today, length of contact: Patient evaluated, case discussed w/ team, chart reviewed Patient Chief Complaint: Inability to care for self Problems Identified/Issues Discussed: No new events overnight. Patient pending [facility] placement. Patient continues to have chronic memory deficits which limit his ability to care for himself. Patient aware that we are seeking fdc placement and is agreeable. He denies acute AH/VH/SI/HI. No violence/ aggression or agitation. Patient is at his baseline of functioning and psychiatrically stable for referral to fdc placement. Medication Change: No Medical Record Reviewed: Yes Consults ordered or reviewed: Medicine consult Psychology consult: Pt is a 72 year old male admitted to [facility] and referred to the technical document writer for evaluation. ON the DRS, pt scored an overall score of 104. P scored within normal limits on Attention, and Construction tasks. Pt's Memory, Initiation, and Conceptualization skills all fell in the deficient Range. pt was not oriented and had difficulty recalling governor, mayor, and current location. Overall 104 Attention 35 wnl Memory 12 deficient Initiation 29 deficient Construction 4 wnl conceptualization 24 Supervision of this patient recommended upon discharge. Mental Status Examination - Cognitive Function Orientation: Person, Place, Situation, Time Memory: Impaired Attention: Poor Concentration: Poor Association: WNL Fund of Knowledge: Poor Decription of patient's judgement and insights: Limited I/J due to dementia - Mood Mood: Neutral - Affect Affect: Broad - Speech Speech: Appropriate - Formal Thought Process Formal Thought Process: No Impairment Psychotic Thoughts and Behaviors: No AH/VH/paranoia/delusions - Suicidal Ideation Suicidal Ideation: No - Homicidal Ideation Homicidal Ideation: No Goal/Treatment Plan - Goal/Treatment Plan Need for Continued Stay: Severe functional impairment Progress Toward Problem(s) and Goals/Treatment Plan: Dementia w/o behavioral disturbance; Depressive Disorder; Patient is psychiatrically stable for fdc placement -Continue Namenda -Medicine consult -Psychology consult -Individual and group therapy -Psychoeducation -Disposition planning- pending fdc placement. Estimated Date of D/C: 07/26/18
[2018-07-19] MEDS: Multivitamin With Minerals Tab PO SCH (09:25)
--- NOTE | 2018-07-19 10:49 | PCM.PYCHDC ---
Mental Status Examination - Mental Status Examination Orientation: Person, Place, Situation Memory: Impaired Mood: Neutral Affect: Broad Speech: Appropriate Attention: Poor Concentration: Poor Association: WNL Fund of Knowledge: Poor Formal Thought Process: Loosening of associations Description of patient's judgement and insight: Limited I/J due to dementia Psychotic Thoughts and Behaviors: No AH/VH/paranoia/delusions Suicidal Ideation: No Current Homicidal Ideation?: No Discharge Summary - Discharge Note Reason for Hospitalization: HPI: 72 yo homeless male, presents w/ depression and thoughts of dying and passive SI due to having chronic physical pain. He reports that his recently. He reports feeling hopeless at times, but denies active suicidal ideation/plan/intent. He was treated w/ Lexapro recently, but has been non- compliant with treatment. NO AH/VH. PPHx: H/o psychiatric hospitalization on 3NS for depression and suicidal ideation. H/o treatment w/ Lexapro, but patient it not compliant with treatment or medications. He has a history of alcohol abuse, but states that he has not drank alcohol for several weeks. PMHx: DVT ALL: NKDA SHx: Homeless; h/o alcohol abuse Consultations:: List each consultation separately and include: 1. Reason for request. 2. Findings. 3. Follow-up Consultations: Medicine consult Psychology consult: Pt is a 72 year old male admitted to [facility] and referred to the documentation writer for evaluation. ON the DRS, pt scored an overall score of 104. P scored within normal limits on Attention, and Construction tasks. Pt's Memory, Initiation, and Conceptualization skills all fell in the deficient Range. pt was not oriented and had difficulty recalling governor, mayor, and current location. Overall 104 Attention 35 wnl Memory 12 deficient Initiation 29 deficient Construction 4 wnl conceptualization 24 Supervision of this patient recommended upon discharge. Summary of Hospital Course include:: 1. Description of specific treatment plan utilized for patients during their course of treatmen. 2. Summarize the time- course for resolution of acute symptoms and/or regressed behaviors. 3. Describe issues identified and worked on during hospitalization. 4. Describe medication utilized. 5. Describe medical problems identified and treated. 6. Reassessment of suicide risk Summary of Hospital Course: Patient admitted to the psychiatry unit. Individual and group therapy were provided. Patient was stabilized on Namenda. He reports improved mood, no AH/VH/SH/HI. He continues to have chronic memory deficits due to dementia. He is psychiatrically stable for discharge to [facility] at this time. - Diagnosis (1) Depressive disorder Current Visit: Yes Status: Resolved (2) Dementia Current Visit: Yes Status: Chronic - Final Diagnosis (DSM 5) Condition upon Discharge: STABLE DSM 5: Depressive Disorder; Dementia without behavioral disturbances Disposition: TRANSF TO SNF Follow-up Treatment Plan: Dementia w/o behavioral disturbance; Depressive Disorder; Patient is psychiatrically stable for [facility] placement -Continue Namenda -Discharge to jail placement - Smoking Cessation Smoking Cessation Medication prescribed: No - Antipsychotic Medications Pt discharged on 2 or more routine antipsychotic medications: No
--- NOTE | 2018-07-19 12:13 | PCM.BM ---
Treatment Plan Problems - Problems identified on initial assessmt hopeless/helplessness Date Initiated: 06/19/18 Time Initiated: 18:14 Assessment reference: NA Status: Active Priority: 1 medication adherence Date Initiated: 06/19/18 Time Initiated: 18:15 Assessment reference: NA Status: Active Priority: 2 Treatment assets and liabiliti Patient Assests: cooperative, ADL independent, physically healthy, negotiates basic needs, cognitively intact Patient Liabilities: poor support system, medical problems, other (homeless) - Milieu Protocol Maintain good personal hygiene: every shift Encourage regular showers, every shift Remind patient to perform daily oral care, every shift Assist patient to perform ADL's Maintain personal safety: every shift Educate patient to report safety concerns to staff, every shift Monitor environment for contraband/sharps Medication safety: Monitor for expected outcome, potential side effects: every shift, Assess barriers to learning: every shift, Assess readiness for medication education: every shift Milieu Narrative: Dementia w/o behavioral disturbance; Depressive Disorder; Patient is psychiatrically stable for fdc placement -Continue Namenda -Discharge to [facility] placement Family Contact Family involvement: No known Family/SO - Outside Agency [facility] Care involvment: Not involved - Goals for Treatment Patient goals for treatment: "My pain to go away." Discharge/Continuing Care - Education Needs Education Needs: Family Medication, Family Diagnosis/Disease Process, Family Coping Skills, Family Placement options, Family Community resources, Family Health Practices/Safety, Family Personal Hygiene/Grooming, Family Aftercare Safe ty Plan - Discharge Discharge Criteria: Tolerates medication w/o severe side effects, Free of Suicidal thoughts, Ability to care for self, Reduction of target symptoms Discharge to:: Care Home - Additional Comments 06/21/18 14:58 Pt seen and discussed in team meeting. Reason for hospitalization reviewed and discussed. Pt reported he was admitted due to "too much pain." Pt denied symptoms of depression and anxiety. Pt denied having memory issues stating "perfect." Film Library Clerk reviewed and discussed neuropscyh evaluation and results. Pt verbalize that he disagrees with the final results of the testing. Film Library Clerk inquired about suicidal statement that pt mentioned prior to hospitalization stating "I rather ." Pt reported that he rather than to live with the pain. Pt is homeless and unable to care for himself in the community. Pt's social and emotional issues reviewed and discussed. Tx plan reviewed and discussed. Film Library Clerk reviewed NH placement if he meets criteria and pt verbalized agreement. SW to continue to follow case. - Treatment Team Participation Patient/Family/SO Statement: Dementia w/o behavioral disturbance; Depressive Disorder; Patient is psychiatrically stable for fdc placement -Continue Namenda -Discharge to [facility] placement Discussed with Family/SO: No Was Patient/Family/SO present at Treatment Team Meeting: Yes Treatment Plan Review Patient participation: Yes Family/SO/Caregiver participation: No Additional Comments: INTERDISCIPLINARY TEAM MEETING NOTE: Pt seen and discussed in team meeting. Pt's progress and bx on the unit reviewed and discussed. Pt reported feeling "regular." Pt c/o left leg pain. Pt reported "regular" sleep and appetite. Pt informed that he has been approved for [facility] [place] and will be discharged today. Pt verbalized agreement to transfer. Pt's medications reviewed and discussed by attending psychiatrist. Pt verbalized agreement. SW explained to pt that his medication regimen will continue at the transferring facility as well. - Problem hopeless/helplessness Date Initiated: 06/19/18 Time Initiated: 18:14 Progress toward outcomes: resolved medication adherence Date Initiated: 06/19/18 Time Initiated: 18:15 Progress toward outcomes: resolved (Pt is compliant with prescribed medication) - Discharge / Continuing Care Discharge to:: Care Home (Pt is accepted at [facility] [place]) Behavioral Health Services: Other (Medication Management) Health Needs: Follow up care/test, Doctor appointments, Special equipment, Nutritional, Medications/Rx, Educational, Recreational/Social
== END 2018-07-19 14:45 | DRG 884 ==
LOC: H.ER 16:26 → H.ERHOLD 06-19 14:17 → H.STEP 06-19 17:11
PROVIDERS: ADMIT Psychiatry & Neurology Psychiatry; ATTEND Psychiatry & Neurology Psychiatry
PROC: GZHZZZZ Group Psychotherapy (ICD-10-PCS; principal; 2018-06-19)
PROC: GZ56ZZZ Individual Psychotherapy, Supportive (ICD-10-PCS; 2018-06-19)
DX: F03.90 Unspecified dementia, unspecified severity, without behavioral disturbance, psychotic disturbance, mood disturbance, and anxiety (principal); R45.851 Suicidal ideations; I82.509 Chronic embolism and thrombosis of unspecified deep veins of unspecified lower extremity; F32.9 Major depressive disorder, single episode, unspecified; Z59.0 Homelessness; Z91.14 Patient's other noncompliance with medication regimen; Z91.19 Patient's noncompliance with other medical treatment and regimen; Z79.01 Long term (current) use of anticoagulants; F17.210 Nicotine dependence, cigarettes, uncomplicated; F41.9 Anxiety disorder, unspecified; G89.29 Other chronic pain; M19.90 Unspecified osteoarthritis, unspecified site